=== PATIENT | female | born 1940 | race Caucasian/White ===

== ENCOUNTER 2016-09-08 13:25 | Inpatient (IN) | payer MEDICARE, OTHER ==
[~2016-09-08] VITALS: Ht 157.5 cm; Wt 75.3 kg
[2016-09-08] MEDS ORDERED: KETOROLAC TROMETHAMINE 30 MG/ML INJ. IV ONE (14:45)
--- NOTE | 2016-09-08 15:04 | EKG ---
[facility] [address] [place] [address] Test Date: 2016-09-08 Test Time: 14:56:33 Pat Name: CYDNEY BALLARD Department: Room: Gender: F Civil Technician: : 1940 Requested By: Carlos GOODMAN Order Number: [id number] Reading MD: Jakub Farr Measurements Intervals [place] Rate: 71 P: 30 CA: 174 QRS: -13 QRSD: 78 T: 33 QT: 392 QTc: 431 Interpretive Statements SINUS RHYTHM Electronically Signed On 09-08-2016 18:01:28 CDT by Jakub Farr
--- NOTE | 2016-09-08 15:15 | RAD ---
Chest, 2 views, 09/08/2016: History: Right-sided chest pain, shortness of breath The heart is at the upper limits of normal in size. There is calcific plaquing of the aorta. The pulmonary vascularity is normal. No pulmonary infiltrate is seen. There is no evidence of pleural fluid. Mild spurring is present in the spine. A left humeral head prosthesis is in place. IMPRESSION: 1. Borderline cardiomegaly. 2. No acute abnormality is detected.
--- NOTE | 2016-09-08 15:16 | RAD ---
Right upper quadrant abdominal ultrasound History: Right flank and upper quadrant pain. Comparison: None. Technique: Transabdominal ultrasound images are obtained. Findings: Visualized pancreas is unremarkable. Liver is is increased in echogenicity. The liver demonstrates a large complex cystic lesion measuring 7.0 x 4.9 x 6.6 cm. Gallbladder is partially contracted. Patient ate 30 minutes prior to examination. No cholelithiasis or cholecystitis is seen. Common bile duct measures normally at 4 mm in diameter. The right kidney measures 9.3 cm in length and is without evidence of obstruction or stone. Visualized portions of the IVC have normal caliber. Impression: 1. Liver demonstrates a large complex cystic lesion with somewhat thickened internal septations. This finding is nonspecific, but possibilities include complex cyst, biliary cystadenoma, abscess, or hydatid disease. Recommend clinical correlation. 2. Echogenic liver, compatible with fatty liver disease.
[2016-09-08 15:23] LABS: BASO # 0.1 x10^3/uL (0.0-0.2); BASO % 1 % (0-3); EOS % 2 % (0-3); HEMATOCRIT 41.8 % (36.0-47.0); HEMOGLOBIN 14.5 g/dL (12.0-15.5); LYMPH % 20 % (24-48); MEAN CORPUSCULAR HEMOGLOBIN 30 pg (25-35); MEAN CORPUSCULAR HGB CONC 35 g/dL (31-37); MEAN CORPUSCULAR VOLUME 88 fL (79-100); MONO % 7 % (0-9); NEUT % 70 % (31-73); PLATELET COUNT 206 x10^3/uL (140-400); RED BLOOD COUNT 4.78 x10^6/uL (3.50-5.40); WHITE BLOOD COUNT 14.9 x10^3/uL (4.0-11.0)
[2016-09-08 15:54] LABS: CALCIUM 8.9 mg/dL (8.5-10.1); CREATININE 0.9 mg/dL (0.6-1.0); GFR 60.6; POTASSIUM 3.3 mmol/L (3.5-5.1)
[2016-09-08 16:01] LABS: ALBUMIN 3.9 g/dL (3.4-5.0); DIRECT BILIRUBIN 0.1 mg/dL (0.0-0.2); TOTAL BILIRUBIN 0.5 mg/dL (0.2-1.0); TOTAL PROTEIN 7.1 g/dL (6.4-8.2)
--- NOTE | 2016-09-08 16:38 | PHYS DOC ---
Past Medical History Past Medical History: GERD, High Cholesterol, Hypertension Past Surgical History: Hysterectomy Additional Past Surgical Histo: left shoulder Alcohol Use: None Drug Use: None Adult General Chief Complaint Chief Complaint: RIB PAIN HPI HPI Patient is a 76 year old female who presents with right lower chest wall and RUQ abdominal pain that started approx 2 hours prior to arrival. Pain is mild to moderate, constant, nonradiating. She denies fever or chills, nausea or vomiting, dysuria, hematuria, diarrhea, constipation, bloody or dark stools, dyspnea, palpitations, diaphoresis, orthopnea, exertional symptoms. She denies prior symptoms like this. She denies any history of liver cyst. She lives in [place], but is here on work travel. Review of Systems Review of Systems Constitutional: Denies fever or chills [] Eyes: Denies change in visual acuity, redness, or eye pain [] HENT: Denies nasal congestion or sore throat [] Respiratory: Denies cough or shortness of breath [] Cardiovascular: No additional information not addressed in HPI [] GI: Denies nausea, vomiting, bloody stools or diarrhea [] : Denies dysuria or hematuria [] Musculoskeletal: Denies back pain or joint pain [] Integument: Denies rash or skin lesions [] Neurologic: Denies headache, focal weakness or sensory changes [] Endocrine: Denies polyuria or polydipsia [] Current Medications Current Medications Current Medications Medications (Trade) Dose Ordered Sig/Tonia Start Time Stop Time Status Last Admin Dose Admin Info (Do NOT chart on this entry -- for MONITORING) 1 each PRN DAILY PRN 09/08/16 17:00 09/10/16 16:59 Iohexol (Omnipaque 300 Mg/ml) 75 ml 1X ONCE 09/08/16 17:00 09/08/16 17:01 DC 09/08/16 17:00 75 ML Ketorolac Tromethamine (Toradol) 10 mg 1X ONCE 09/08/16 14:45 09/08/16 14:46 DC 09/08/16 15:13 10 MG Piperacillin Sod/ Tazobactam Sod 1 each 1 each PRN DAILY PRN 09/08/16 16:45 Piperacillin Sod/ Tazobactam Sod/ Sodium Chloride (Zosyn/Iv Sodium Chloride 0.9% 50ml) 50 ml @ 100 mls/hr 1X ONCE 09/08/16 16:45 09/08/16 17:14 DC 09/08/16 17:01 100 MLS/HR Allergies Allergies Physical Exam Physical Exam Constitutional: Well developed, well nourished, no acute distress, non-toxic appearance. [] HENT: Normocephalic, atraumatic, bilateral external ears normal, oropharynx moist, nose normal. [] Eyes: PERRLA, EOMI. [] Neck: Normal range of motion, supple. [] Cardiovascular:Heart rate regular rhythm [] Lungs & Thorax: Bilateral breath sounds clear to auscultation. Has some tenderness on along right lower lateral chest wall with no visual or palpable abnormality. Specifically has no rash. [] Abdomen: Bowel sounds normal, soft, some epigastric and right upper quadrant tenderness, no guarding or rebound. [] Skin: Warm, dry, no erythema, no rash. [] Back: No tenderness, no CVA tenderness. [] Extremities: No tenderness, ROM intact, no edema. [] Neurologic: Alert and oriented X 3, normal motor function, normal sensory function, no focal deficits noted. [] Psychologic: Affect normal, judgement normal, mood normal. [] Current Patient Data Vital Signs Vital Signs Date Time Temp Pulse Resp B/P Pulse Ox O2 Delivery O2 Flow Rate FiO2 09/08/16 16:00 72 18 178/76 93 Room Air 09/08/16 13:34 97.9 97.9 Lab Values Laboratory Tests Test 09/08/16 15:10 White Blood Count 14.9x10^3/uL (4.0-11.0) H Red Blood Count 4.78x10^6/uL (3.50-5.40) Hemoglobin 14.5g/dL (12.0-15.5) Hematocrit 41.8% (36.0-47.0) Mean Corpuscular Volume 88fL (79-100) Mean Corpuscular Hemoglobin 30pg (25-35) Mean Corpuscular Hemoglobin Concent 35g/dL (31-37) Red Cell Distribution Width 13.0% (11.5-14.5) Platelet Count 206x10^3/uL (140-400) Neutrophils (%) (Auto) 70% (31-73) Lymphocytes (%) (Auto) 20% (24-48) L Monocytes (%) (Auto) 7% (0-9) Eosinophils (%) (Auto) 2% (0-3) Basophils (%) (Auto) 1% (0-3) Neutrophils # (Auto) 10.4x10^3uL (1.8-7.7) H Lymphocytes # (Auto) 3.0x10^3/uL (1.0-4.8) Monocytes # (Auto) 1.0x10^3/uL (0.0-1.1) Eosinophils # (Auto) 0.3x10^3/uL (0.0-0.7) Basophils # (Auto) 0.1x10^3/uL (0.0-0.2) Sodium Level 137mmol/L (136-145) Potassium Level 3.3mmol/L (3.5-5.1) L Chloride Level 97mmol/L (98-107) L Carbon Dioxide Level 33mmol/L (21-32) H Anion Gap 7 (6-14) Blood Urea Nitrogen 17mg/dL (7-20) Creatinine 0.9mg/dL (0.6-1.0) Estimated GFR (Cockcroft-Gault) 60.6 Glucose Level 109mg/dL (70-99) H Calcium Level 8.9mg/dL (8.5-10.1) Total Bilirubin 0.5mg/dL (0.2-1.0) Direct Bilirubin 0.1mg/dL (0.0-0.2) Aspartate Amino Transferase (AST) 18U/L (15-37) Alanine Aminotransferase (ALT) 25U/L (14-59) Alkaline Phosphatase 96U/L (46-116) Troponin I Quantitative < 0.017ng/mL (0.000-0.055) Total Protein 7.1g/dL (6.4-8.2) Albumin 3.9g/dL (3.4-5.0) Lipase 162U/L (73-393) Laboratory Tests 09/08/16 15:10 Laboratory Tests 09/08/16 15:10 EKG EKG EKG as interpreted by me as normal sinus rhythm, rate 71, no ST-T changes, normal intervals, no ectopy Radiology/Procedures Radiology/Procedures Ultrasound abdomen Impression: 1. Liver demonstrates a large complex cystic lesion with somewhat thickened internal septations. This finding is nonspecific, but possibilities include complex cyst, biliary cystadenoma, abscess, or hydatid disease. Recommend clinical correlation. 2. Echogenic liver, compatible with fatty liver disease. DICTATED and SIGNED BY: LOTTIE GEORGE MD DATE: 09/08/16 1508 Course & Med Decision Making Course & Med Decision Making Pertinent Labs and Imaging studies reviewed. (See chart for details) Laboratory evaluation is largely unremarkable other than mild leukocytosis. Imaging as above. Discussed case with Dr. Edouard, gastroenterology, who recommends IV antibiotics, CT abdomen and pelvis, and infectious disease consult. He also states she will likely need biopsy depending upon CT results. She will be admitted for further workup for concern of liver abscess versus malignancy. Discussed case with Dr. Salinas, who will admit. ID consultation placed. Fransico Disclaimer Dragon Disclaimer This electronic medical record was generated, in whole or in part, using a voice recognition dictation system. Departure Departure Impression: Primary Impression: Abdominal pain Additional Impression: Liver cyst Disposition: ADMITTED INPATIENT Condition: STABLE Referrals: UNKNOWN PCP NAME (PCP) Problem Qualifiers Primary Impression: Abdominal pain Abdominal location: right upper quadrant Qualified Code: R10.11 - Right upper quadrant pain Carlos GOODMAN MD Sep 08, 2016 16:38
[2016-09-08] MEDS ORDERED: PIPERACILLIN/TAZOBACTAM 3.375 GM in IV NORMAL SALINE 50ML 50 ML IV ONE (16:45)
[2016-09-08] MEDS ORDERED: PIP/TAZO PER PHARMACY MC PRN (16:45)
[2016-09-08] MEDS ORDERED: CONTRAST GIVEN MC PRN (17:00)
[2016-09-08] MEDS ORDERED: IOHEXOL 300 MG/ML 75 ML VIAL IV ONE (17:00)
[2016-09-08] MEDS ORDERED: fentaNYL PF VIAL 100 MCG/2 ML VIAL IV PRN (17:15)
[2016-09-08] MEDS ORDERED: ONDANSETRON PF 4 MG/2 ML VIAL. IV PRN (17:15)
[2016-09-08] MEDS ORDERED: ACETAMINOPHEN 325 MG TABLET. PO PRN (17:15)
--- NOTE | 2016-09-08 19:03 | ACF ---
Admission Forms Criteria ABDOMINAL PAIN Clinical Indications for Admission to Inpatient Care (Place 'X' for any and all applicable criteria): Admission is indicated for ANY ONE of the following(1)(2)(3)(4)(5): [x]I. Inpatient admission required rather than observation care (Also use Abdominal Pain: Observation Care, as appropriate) because of ANY ONE of the following: [ ]a) Severe pain requiring acute inpatient management [x]b) Identification of etiology/finding that requires inpatient care (eg, aortic dissection, free air) [ ]c) Absent bowel sounds with complete ileus(6) [ ]d) Suspected toxic megacolon [ ]e) Severe electrolyte abnormalities requiring inpatient care [ ]f) High fever or infection requiring inpatient admission as indicated by ANY ONE of following(7)(8): [ ] i) Appropriate outpatient or observational care antimicrobial treatment unavailable, not effective, or not feasible [ ] ii) Documented bacteremia [ ] iii) Temperature > 104.9 degrees F (oral) [ ] iv) T >103.1 F (oral) or < 96.8 F(rectal) that does not respond to all emergency treatment measures [ ]g) Signs of intestinal obstruction [B] [ ]h) Hemodynamic instability [ ]i) IV fluid to replace significant ongoing losses (greater than 3 L/m2 per day) (12)(13) [ ]j) Percutaneous or open drainage (eg, abscess, biliary tract ) procedures [ ]k) Parenteral nutrition regimen that must be implemented on inpatient basis [ ]l) Other condition,treatment or monitoring requiring inpatient admission. [ ]II. Peritoneal signs present [ ]III. Surgery needed that cannot be performed on an ambulatory basis. [ ]IV. Evaluation requires patient to not eat or drink for extended period ( eg, more than 24 hours). [ ]V. Contraindications and/or Inappropriate clinical situations for Observational Care in patients with abdominal pain, when ANY ONE of the following is required: [ ]a) Thorough evaluation is required to prevent catastrophic events due to delays in diagnosing (e.g.Mesenteric ischemia) 1,3 [ ]b) Patient with severe pathology or with chronic symptoms unlikely to improve in the ED stay (3) [ ]. General contraindications and/or Inappropriate clinical situations for Observational Care in patients with abdominal pain, when ANY ONE of the following is required: [ ]a) Prediction of prolongation of LOS based on ANY ONE of the following may be considered as a contraindication for observational care 2, 3, 4, 5, 6, 7, 8, 9, 10, 11 [ ]i) Age > 65 yrs. [ ]ii) Patient arriving by ambulance [ ]iii) Patient with high acuity [ ]iv) Patient requiring vital sign monitoring [ ]v) Patient on IV medication [ ]b) Systolic blood pressures 180mmHg 3,12 [ ]c) Patient with altered mental status including delirium and other alteration of consciousness, (3) [ ]d) Patient whose discharge disposition will be to a chcf home or rehabilitation home should not be managed in Emergency Department Observation Unit. CMS rule requires 3 days hospital stay before such placement.3,13 [ ]e) Patient with failure to thrive due to broad array of etiologies 3,16,17 [ ]f) Inability to ambulate 3,14 Extended stay beyond goal length of stay may be needed for(2)(3): [ ]a) Persistent abdominal pain with suspected intra-abdominal process [ ]b) Diagnosed condition requiring continued stay (e.g., pancreatitis, complicated diverticulitis) [ ]c) Surgery (e.g., colectomy) The original [facility] content created by [employer] has been revised. The portions of the content which have been revised are identified through the use of italic text or in bold, and [facility] has neither reviewed nor approved the modified material.All other unmodified content is copyright [employer]. Please see references footnoted in the original [facility] edition 2016 Admission Criteria Met?: Yes GO GOLDEN Sep 08, 2016 19:03
[2016-09-08] MEDS ORDERED: HYDR25TA9 PO (20:28)
[2016-09-08] MEDS ORDERED: OMEP20CA9 PO (20:28)
[2016-09-08] MEDS ORDERED: SIMV20TA3 PO (20:28)
[2016-09-08] MEDS ORDERED: levothyroxine (20:28)
[2016-09-08] MEDS ORDERED: ATEN50TA PO (20:28)
--- NOTE | 2016-09-08 20:44 | RAD ---
Examination: CT of the abdomen pelvis were performed without and with IV contrast. HISTORY History of complex liver cyst. COMPARISON Ultrasound from same day exam. TECHNIQUE Axial CT images of the abdomen were performed without contrast. Axial CT images of the abdomen pelvis were performed with contrast using multiphasic CT protocol. Exposure: One or more of the following dose reduction technique were utilized for this examination: 1. Automated exposure control. 2.Adjustment of MA and /or KV according to patient size. 3. Use of iterative reconstruction technique. Findings: Minimal bibasilar lung atelectasis identified. No evidence of free air identified in the abdomen. The visualized spleen, adrenals grossly appears unremarkable. The gallbladder is mildly distended. Small hiatal hernia is identified. The stomach is mildly distended. The visualized pancreas grossly appears unremarkable. The small bowel is nondilated. Feces and gas noted in the colon. The appendix grossly appears unremarkable. The bilateral kidneys enhance symmetrically. There is a cystic structure identified in the left kidney measuring 4.2 centimeters likely a cyst. In the inferior right lobe of the liver, there is a 6.8 x 5.4 centimeters cystic structure identified containing subtle hyperdensity within on the precontrast and postcontrast images. There is minimal stranding identified and just inferior to the right lobe of the liver and laterally adjacent to the cystic structure. There is no obvious enhancement identified on the postcontrast images within the cystic structure. Moderate degenerative changes identified in the visualized thoracolumbar spine. There is a lytic focus measuring 1.4 centimeters identified in the T12 vertebral body could be a cyst secondary to degeneration however lytic lesion is not completely excluded. Impression: 1.6.8 centimeter cystic structure identified in the right lobe of the liver inferiorly containing some hyperdensity within without significant enhancement. There is minimal stranding identified just adjacent to the right lobe of the liver adjacent to the cyst. Differential includes complex appearing hepatic cyst, biliary cystadenoma with some minimal leakage or hydrated cyst, given the appearance. A hepatic abscess is less likely given no significant edema around the cystic structure however is not completely excluded. 2. There is a lytic focus measuring 1.4 centimeters identified in the T12 vertebral body could be a cyst secondary to degeneration however lytic lesion is not completely excluded. A followup nonemergent bone scan can be considered. Electronically signed by: Mark Man (Sep 08, 2016 20:42:28)
[2016-09-08] MEDS ORDERED: OMEG300C PO (20:57)
[2016-09-08] MEDS ORDERED: ASPI-482 PO (20:57)
[2016-09-08 21:21] VITALS: BP 147/85
[2016-09-08] MEDS ORDERED: LEVO50TA5 PO (21:31)
[2016-09-08] MEDS ORDERED: OMEG1CAP34 PO (21:41)
[2016-09-08] MEDS: hydroCHLOROthiazide 25 MG TABLET PO SCH (22:42)
[2016-09-08] MEDS: ATENOLOL 50 MG TABLET. PO SCH (22:42)
[2016-09-08] MEDS: SIMVASTATIN 20 MG TABLET PO SCH (22:42)
[2016-09-08 23:00] VITALS: BP 177/80
[2016-09-09] VITALS (7 sets, daily range): BP systolic 116–161; BP diastolic 58–66
[2016-09-09] MEDS: PIPERACILLIN/TAZOBACTAM 3.375 GM in IV NORMAL SALINE 50ML 50 ML IV SCH ×4 (00:25→17:23)
[2016-09-09] MEDS: LEVOTHYROXINE 50 MCG TABLET PO SCH (06:23)
[2016-09-09] MEDS: PANTOPRAZOLE 40 MG TABLET.DR. PO SCH (06:23)
[2016-09-09] MEDS: OMEGA-3 FATTY ACIDS/FISH OIL 1,000 MG CAPSULE. PO SCH (08:32)
[2016-09-09] MEDS: hydroCHLOROthiazide 25 MG TABLET PO SCH (08:33)
[2016-09-09] MEDS: ASPIRIN ENTERIC COATED 81 MG TABLET.DR. PO SCH (08:33)
[2016-09-09] MEDS: ATENOLOL 50 MG TABLET. PO SCH (08:33)
[2016-09-09] MEDS: HYDROcodone/APAP 5/325MG 1 TAB TABLET PO PRN ×2 (10:29→17:23)
--- NOTE | 2016-09-09 10:33 | PDOC1 ---
History and Physical Social History Smoke: No ALCOHOL: rare Drugs: None Current Problem List Problem List Problems Medical Problems: (1) Abdominal pain Status: Acute (2) Liver cyst Status: Acute Current Medications Current Medications Current Medications Medications (Trade) Dose Ordered Sig/Tonia Start Time Stop Time Status Last Admin Dose Admin Acetaminophen 650 mg 650 mg PRN Q4HRS PRN 09/08/16 17:15 09/09/16 17:14 Acetaminophen/ Hydrocodone Bitart (Lortab 5/325) 1 tab PRN Q4HRS PRN 09/08/16 21:45 09/09/16 10:29 1 TAB Aspirin (Ecotrin) 81 mg DAILY 09/09/16 09:00 09/09/16 08:33 81 MG Atenolol (Tenormin) 50 mg DAILY 09/08/16 22:00 09/09/16 08:33 50 MG Fentanyl Citrate (Fentanyl 2ml Vial) 50 mcg PRN Q2HR PRN 09/08/16 17:15 09/09/16 10:31 DC 09/08/16 19:56 50 MCG Fish Oil (Fish Oil) 1,000 mg DAILY 09/09/16 09:00 09/09/16 08:32 1,000 MG Hydrochlorothiazide (Hydrodiuril) 25 mg DAILY 09/08/16 22:00 09/09/16 08:33 25 MG Info (Do NOT chart on this entry -- for MONITORING) 1 each PRN DAILY PRN 09/08/16 17:00 09/10/16 16:59 Iohexol (Omnipaque 300 Mg/ml) 75 ml 1X ONCE 09/08/16 17:00 09/08/16 17:01 DC 09/08/16 17:00 75 ML Ketorolac Tromethamine (Toradol) 10 mg 1X ONCE 09/08/16 14:45 09/08/16 14:46 DC 09/08/16 15:13 10 MG Levothyroxine Sodium (Synthroid) 50 mcg DAILY07 09/09/16 07:00 09/09/16 06:23 50 MCG Ondansetron HCl (Zofran) 4 mg PRN Q8HRS PRN 09/08/16 17:15 09/09/16 17:14 09/08/16 20:11 4 MG Pantoprazole Sodium (Protonix) 40 mg DAILYAC 09/09/16 07:30 09/09/16 06:23 40 MG Piperacillin Sod/ Tazobactam Sod (Zosyn Per Pharmacy) 1 each PRN DAILY PRN 09/08/16 16:45 Piperacillin Sod/ Tazobactam Sod/ Sodium Chloride (Zosyn/Iv Sodium Chloride 0.9% 50ml) 50 ml @ 100 mls/hr Q6HRS 09/09/16 00:00 09/09/16 06:23 100 MLS/HR Simvastatin (Zocor) 20 mg QHS 09/08/16 22:00 09/08/16 22:42 20 MG Allergies Allergies Allergies Coded Allergies Type Severity Reaction Last Updated Verified Curmpke-Yuk-Kdj Reductase Inhibitor Allergy Intermediate ALLERGY TO UNKNOWN CHOLESTEROL MED 09/08/16 No fenofibrate Allergy Intermediate ALLERGY TO UNKNOWN CHOLESTEROL MEDICATION No gemfibrozil Allergy Intermediate ALLERGY TO UNKNOWN CHOLESTEROL MEDICATION No niacin Allergy Intermediate ALLERGY TO UNKNOWN CHOLESTEROL MEDICATION 09/08/16 No ROS Review of System CONSTITUTIONAL: No fever or chills EYES: No recent changes SKIN: No rash or itching CARDIOVASCULAR: No chest pain, syncope, palpitations, or edema RESPIRATORY: No SOB or cough GASTROINTESTINAL: abdominal pain NEUROLOGICAL: No headaches or weakness ENDOCRINE: No cold or heat intolerance GENITOURINARY: No urgency or frequency of urination MUSCULOSKELETAL: No back pain or joint pain LYMPHATICS: No enlarged lymph nodes PSYCHIATRIC: No anxiety or depression Physical Exam Physical Exam GEN.: No apparent distress. Alert and oriented. HEENT: Head is normocephalic, atraumatic NECK: Supple. NO JVD LUNGS: Clear to auscultation. Normal airflow HEART: RRR, S1, S2 present. Peripheral pulses intact ABDOMEN: Soft, tender LUQ. Positive bowel sounds. EXTREMITIES: Without any cyanosis. NEUROLOGIC: Normal speech, normal tone PSYCHIATRIC: Normal affect, normal mood. SKIN: No ulcerations Vitals Vitals Vital Signs Date Time Temp Pulse Resp B/P Pulse Ox O2 Delivery O2 Flow Rate FiO2 09/09/16 10:29 93 Room Air 09/09/16 08:33 64 116/65 09/09/16 07:45 97.7 12 97.7 Labs Labs Laboratory Tests Test 09/08/16 15:10 White Blood Count 14.9x10^3/uL (4.0-11.0) Red Blood Count 4.78x10^6/uL (3.50-5.40) Hemoglobin 14.5g/dL (12.0-15.5) Hematocrit 41.8% (36.0-47.0) Mean Corpuscular Volume 88fL (79-100) Mean Corpuscular Hemoglobin 30pg (25-35) Mean Corpuscular Hemoglobin Concent 35g/dL (31-37) Red Cell Distribution Width 13.0% (11.5-14.5) Platelet Count 206x10^3/uL (140-400) Neutrophils (%) (Auto) 70% (31-73) Lymphocytes (%) (Auto) 20% (24-48) Monocytes (%) (Auto) 7% (0-9) Eosinophils (%) (Auto) 2% (0-3) Basophils (%) (Auto) 1% (0-3) Neutrophils # (Auto) 10.4x10^3uL (1.8-7.7) Lymphocytes # (Auto) 3.0x10^3/uL (1.0-4.8) Monocytes # (Auto) 1.0x10^3/uL (0.0-1.1) Eosinophils # (Auto) 0.3x10^3/uL (0.0-0.7) Basophils # (Auto) 0.1x10^3/uL (0.0-0.2) Sodium Level 137mmol/L (136-145) Potassium Level 3.3mmol/L (3.5-5.1) Chloride Level 97mmol/L (98-107) Carbon Dioxide Level 33mmol/L (21-32) Anion Gap 7 (6-14) Blood Urea Nitrogen 17mg/dL (7-20) Creatinine 0.9mg/dL (0.6-1.0) Estimated GFR (Cockcroft-Gault) 60.6 Glucose Level 109mg/dL (70-99) Calcium Level 8.9mg/dL (8.5-10.1) Total Bilirubin 0.5mg/dL (0.2-1.0) Direct Bilirubin 0.1mg/dL (0.0-0.2) Aspartate Amino Transf (AST/SGOT) 18U/L (15-37) Alanine Aminotransferase (ALT/SGPT) 25U/L (14-59) Alkaline Phosphatase 96U/L (46-116) Troponin I Quantitative < 0.017ng/mL (0.000-0.055) Total Protein 7.1g/dL (6.4-8.2) Albumin 3.9g/dL (3.4-5.0) Lipase 162U/L (73-393) Laboratory Tests Test 09/08/16 15:10 White Blood Count 14.9x10^3/uL (4.0-11.0) Red Blood Count 4.78x10^6/uL (3.50-5.40) Hemoglobin 14.5g/dL (12.0-15.5) Hematocrit 41.8% (36.0-47.0) Mean Corpuscular Volume 88fL (79-100) Mean Corpuscular Hemoglobin 30pg (25-35) Mean Corpuscular Hemoglobin Concent 35g/dL (31-37) Red Cell Distribution Width 13.0% (11.5-14.5) Platelet Count 206x10^3/uL (140-400) Neutrophils (%) (Auto) 70% (31-73) Lymphocytes (%) (Auto) 20% (24-48) Monocytes (%) (Auto) 7% (0-9) Eosinophils (%) (Auto) 2% (0-3) Basophils (%) (Auto) 1% (0-3) Neutrophils # (Auto) 10.4x10^3uL (1.8-7.7) Lymphocytes # (Auto) 3.0x10^3/uL (1.0-4.8) Monocytes # (Auto) 1.0x10^3/uL (0.0-1.1) Eosinophils # (Auto) 0.3x10^3/uL (0.0-0.7) Basophils # (Auto) 0.1x10^3/uL (0.0-0.2) Sodium Level 137mmol/L (136-145) Potassium Level 3.3mmol/L (3.5-5.1) Chloride Level 97mmol/L (98-107) Carbon Dioxide Level 33mmol/L (21-32) Anion Gap 7 (6-14) Blood Urea Nitrogen 17mg/dL (7-20) Creatinine 0.9mg/dL (0.6-1.0) Estimated GFR (Cockcroft-Gault) 60.6 Glucose Level 109mg/dL (70-99) Calcium Level 8.9mg/dL (8.5-10.1) Total Bilirubin 0.5mg/dL (0.2-1.0) Direct Bilirubin 0.1mg/dL (0.0-0.2) Aspartate Amino Transf (AST/SGOT) 18U/L (15-37) Alanine Aminotransferase (ALT/SGPT) 25U/L (14-59) Alkaline Phosphatase 96U/L (46-116) Troponin I Quantitative < 0.017ng/mL (0.000-0.055) Total Protein 7.1g/dL (6.4-8.2) Albumin 3.9g/dL (3.4-5.0) Lipase 162U/L (73-393) VTE Prophylaxis Ordered VTE Prophylaxis Devices: Yes VTE Pharmacological Prophylaxi: Contraindicated TUAN YOUNG MD Sep 09, 2016 10:33
--- NOTE | 2016-09-09 12:05 | PDOC2 ---
GI CONSULT Date Date/Time DATE: 09/09/16 TIME: 11:52 Providers Attending Physician Dani Salinas MD Referring Physician Consulting Physician Dr. Sims History of Present Illness HPI 76 yo WF- traveling her from [place]- denies prior RUQ pain, liver disease etc but honestly does not think she has ever had an xray of liver before- some constipation , typical for her travels, but improved after laxatives - no pain with constipation- but new onset RUQ sharp pain- lateral, just below ribs- NO trauma. Last colonoscopy over 5 years ago but no history of diverticulitis, colon problems, biliary disease etc. No foreign travel. [place] and CT show 6-7 cm cyst in right lobe of liver- and is near the location of her pain- but only shows alittle inflammatory change and no obvious mass. No portal vein air, thrombosis etc. Does have history of recurrent UTI- last abx in may- no evaluation- buat happens at least yearly and responds to abx or cranberry pills (recent). No other chronic history History Past Medical History HTN Lipids hypothyroid Recurrent UTI Social/Personal History non smoker, rare alcohol- no drug abuse, no IV drug history Review of Systems Gastrointestinal: Yes: RUQ pain, constipation Allergies Allergies Allergies Coded Allergies Type Severity Reaction Last Updated Verified Hbndqxy-Htz-Iiz Reductase Inhibitor Allergy Intermediate ALLERGY TO UNKNOWN CHOLESTEROL MED 09/08/16 No fenofibrate Allergy Intermediate ALLERGY TO UNKNOWN CHOLESTEROL MEDICATION No gemfibrozil Allergy Intermediate ALLERGY TO UNKNOWN CHOLESTEROL MEDICATION No niacin Allergy Intermediate ALLERGY TO UNKNOWN CHOLESTEROL MEDICATION 09/08/16 No Medications Medications Current Medications Ketorolac Tromethamine (Toradol) 10 mg 1X ONCE IV Last administered on 15:13; Start 09/08/16 at 14:45; Stop 09/08/16 at 14:46; Status DC Piperacillin Sod/ Tazobactam Sod 1 each 1 each PRN DAILY PRN MC SEE COMMENTS; Start 09/08/16 at 16:45 Piperacillin Sod/ Tazobactam Sod/ Sodium Chloride (Zosyn/Iv Sodium Chloride 0.9 % 50ml) 50 ml @ 100 mls/hr 1X ONCE IV Last administered on 09/08/16 17:01; Start 09/08/16 at 16:45; Stop 09/08/16 at 17:14; Status DC Iohexol (Omnipaque 300 Mg/ml) 75 ml 1X ONCE IV Last administered on 09/08/16 17:00; Start 09/08/16 at 17:00; Stop 09/08/16 at 17:01; Status DC Info (Do NOT chart on this entry -- for MONITORING) 1 each PRN DAILY PRN MC SEE COMMENTS; Start 09/08/16 at 17:00; Stop 09/10/16 at 16:59 Ondansetron HCl (Zofran) 4 mg PRN Q8HRS PRN IV NAUSEA/VOMITING Last administered on 09/08/16 20:11; Start 09/08/16 at 17:15; Stop 09/09/16 at 17:14 Fentanyl Citrate (Fentanyl 2ml Vial) 50 mcg PRN Q2HR PRN IV PAIN Last administered on 09/08/16 19:56; Start 09/08/16 at 17:15; Stop 09/09/16 at 10:31 ; Status DC Acetaminophen 650 mg 650 mg PRN Q4HRS PRN PO FEVER; Start 09/08/16 at 17:15; Stop 09/09/16 at 17:14 Piperacillin Sod/ Tazobactam Sod/ Sodium Chloride (Zosyn/Iv Sodium Chloride 0.9 % 50ml) 50 ml @ 100 mls/hr Q6HRS IV Last administered on 09/09/16 11:46; Start 09/09/16 at 00:00 Aspirin (Ecotrin) 81 mg DAILY PO Last administered on 09/09/16 08:33; Start at 09:00 Atenolol (Tenormin) 50 mg DAILY PO Last administered on 09/09/16 08:33; Start 09/08/16 at 22:00 Hydrochlorothiazide (Hydrodiuril) 25 mg DAILY PO Last administered on 08:33; Start 09/08/16 at 22:00 Levothyroxine Sodium (Synthroid) 50 mcg DAILY07 PO Last administered on 06:23; Start 09/09/16 at 07:00 Simvastatin (Zocor) 20 mg QHS PO Last administered on 09/08/16 22:42; Start at 22:00 Pantoprazole Sodium (Protonix) 40 mg DAILYAC PO Last administered on 09/09/16 06:23; Start 09/09/16 at 07:30 Fish Oil (Fish Oil) 1,000 mg DAILY PO Last administered on 09/09/16 08:32; Start 09/09/16 at 09:00 Acetaminophen/ Hydrocodone Bitart (Lortab 5/325) 1 tab PRN Q4HRS PRN PO MODERATE PAIN Last administered on 09/09/16 10:29; Start 09/08/16 at 21:45 Active Scripts Active Reported Fish Oil Concentrate Softgel ([place]-3 Fatty Acids/Fish Oil) 1 Each Capsule 1 Each PO Levothyroxine Sodium 50 Mcg Tablet 1 Tab PO DAILY Aspir 81 (Aspirin) 81 Mg Tablet.dr 1 Tab PO DAILY Omeprazole 20 Mg Capsule.dr 1 Cap PO DAILY Hydrochlorothiazide Tablet (Hydrochlorothiazide) 25 Mg Tablet 1 Tab PO DAILY Atenolol 50 Mg Tablet 1 Tab PO DAILY Simvastatin 20 Mg Tablet 1 Tab PO QHS Physical Exam Physical Exam VSS afeb Neck supple chest clear cor- RRR abd- tender lateral right side just under ribs- no mass - rest of abd NONTENDER- normal bowel sounds extrem - NO CCE Neuro- alert non focal Labs Labs Laboratory Tests Test 09/08/16 15:10 White Blood Count 14.9x10^3/uL (4.0-11.0) Red Blood Count 4.78x10^6/uL (3.50-5.40) Hemoglobin 14.5g/dL (12.0-15.5) Hematocrit 41.8% (36.0-47.0) Mean Corpuscular Volume 88fL (79-100) Mean Corpuscular Hemoglobin 30pg (25-35) Mean Corpuscular Hemoglobin Concent 35g/dL (31-37) Red Cell Distribution Width 13.0% (11.5-14.5) Platelet Count 206x10^3/uL (140-400) Neutrophils (%) (Auto) 70% (31-73) Lymphocytes (%) (Auto) 20% (24-48) Monocytes (%) (Auto) 7% (0-9) Eosinophils (%) (Auto) 2% (0-3) Basophils (%) (Auto) 1% (0-3) Neutrophils # (Auto) 10.4x10^3uL (1.8-7.7) Lymphocytes # (Auto) 3.0x10^3/uL (1.0-4.8) Monocytes # (Auto) 1.0x10^3/uL (0.0-1.1) Eosinophils # (Auto) 0.3x10^3/uL (0.0-0.7) Basophils # (Auto) 0.1x10^3/uL (0.0-0.2) Sodium Level 137mmol/L (136-145) Potassium Level 3.3mmol/L (3.5-5.1) Chloride Level 97mmol/L (98-107) Carbon Dioxide Level 33mmol/L (21-32) Anion Gap 7 (6-14) Blood Urea Nitrogen 17mg/dL (7-20) Creatinine 0.9mg/dL (0.6-1.0) Estimated GFR (Cockcroft-Gault) 60.6 Glucose Level 109mg/dL (70-99) Calcium Level 8.9mg/dL (8.5-10.1) Total Bilirubin 0.5mg/dL (0.2-1.0) Direct Bilirubin 0.1mg/dL (0.0-0.2) Aspartate Amino Transf (AST/SGOT) 18U/L (15-37) Alanine Aminotransferase (ALT/SGPT) 25U/L (14-59) Alkaline Phosphatase 96U/L (46-116) Troponin I Quantitative < 0.017ng/mL (0.000-0.055) Total Protein 7.1g/dL (6.4-8.2) Albumin 3.9g/dL (3.4-5.0) Lipase 162U/L (73-393) Imaging Imaging CT and US Assessment Assessment RUQ pain- new onset 2 days ago- tender to palp in right lateral near area of "cyst " on CT- 7 cm cyst is large but usually not painful unless expanding and involving capsule- abscess is a possibility based on WBC but CT features are atypical. Tumor unlikely to look like this and certainly unlikely to cause acute pain- was recently constipation but did have BM before onset of pain and nothing on CT suggests bowel source for pain Cyst in Rt lobe of liver- 7 cm- ? abscess- but atypical Problems: Plan Plan Agree with empiric abx and pain control await ID consult- I would consider Interventional consult and needle drainage IF ok with ID Thank you for allowing us to participate in the care of your patient. We will continue to follow the patient with you and provide an appropriate recommendation as it becomes available. FERNANDO SIMS MD Sep 09, 2016 12:05
--- NOTE | 2016-09-09 13:22 | PDOC ---
Infectious Disease Note Vital Sign Vital Signs Vital Signs Date Time Temp Pulse Resp B/P Pulse Ox O2 Delivery O2 Flow Rate FiO2 09/09/16 11:29 94 Room Air 09/09/16 10:35 98.1 67 19 161/66 98.1 Physical Exam PHYSICAL EXAM IV: ok Labs Lab Laboratory Tests Test 09/08/16 15:10 White Blood Count 14.9x10^3/uL (4.0-11.0) Red Blood Count 4.78x10^6/uL (3.50-5.40) Hemoglobin 14.5g/dL (12.0-15.5) Hematocrit 41.8% (36.0-47.0) Mean Corpuscular Volume 88fL (79-100) Mean Corpuscular Hemoglobin 30pg (25-35) Mean Corpuscular Hemoglobin Concent 35g/dL (31-37) Red Cell Distribution Width 13.0% (11.5-14.5) Platelet Count 206x10^3/uL (140-400) Neutrophils (%) (Auto) 70% (31-73) Lymphocytes (%) (Auto) 20% (24-48) Monocytes (%) (Auto) 7% (0-9) Eosinophils (%) (Auto) 2% (0-3) Basophils (%) (Auto) 1% (0-3) Neutrophils # (Auto) 10.4x10^3uL (1.8-7.7) Lymphocytes # (Auto) 3.0x10^3/uL (1.0-4.8) Monocytes # (Auto) 1.0x10^3/uL (0.0-1.1) Eosinophils # (Auto) 0.3x10^3/uL (0.0-0.7) Basophils # (Auto) 0.1x10^3/uL (0.0-0.2) Sodium Level 137mmol/L (136-145) Potassium Level 3.3mmol/L (3.5-5.1) Chloride Level 97mmol/L (98-107) Carbon Dioxide Level 33mmol/L (21-32) Anion Gap 7 (6-14) Blood Urea Nitrogen 17mg/dL (7-20) Creatinine 0.9mg/dL (0.6-1.0) Estimated GFR (Cockcroft-Gault) 60.6 Glucose Level 109mg/dL (70-99) Calcium Level 8.9mg/dL (8.5-10.1) Total Bilirubin 0.5mg/dL (0.2-1.0) Direct Bilirubin 0.1mg/dL (0.0-0.2) Aspartate Amino Transf (AST/SGOT) 18U/L (15-37) Alanine Aminotransferase (ALT/SGPT) 25U/L (14-59) Alkaline Phosphatase 96U/L (46-116) Troponin I Quantitative < 0.017ng/mL (0.000-0.055) Total Protein 7.1g/dL (6.4-8.2) Albumin 3.9g/dL (3.4-5.0) Lipase 162U/L (73-393) Objective Assessment Hepatic complex cyst vs abscess Leukocytosis Acute onset RUQ abdominal pain GERD HTN Plan Plan of Care Await IR for bx and cultures Repeat CBC in am. Pain management per primary Zosyn Dr. Sims, GI Thank you [phone] Attending Co-Sign The patient was seen and interviewed as well as examined at the bedside. The chart was reviewed. The case was discussed. Agree with the plan of care. JOHN LOAIZA APRN Sep 09, 2016 13:22 CAL RUST MD Sep 09, 2016 15:13
--- NOTE | 2016-09-09 14:06 | RAD ---
3 view right rib detail series History: Atraumatic right rib pain in the axillary region and mid thorax region. Findings: No acute rib fracture or osteolytic process is seen. IMPRESSION: No acute right rib fracture.
[2016-09-09] MEDS: SIMVASTATIN 20 MG TABLET PO SCH (21:46)
--- NOTE | 2016-09-09 23:14 | CONS ---
DATE OF CONSULTATION: 09/08/2016 This is Toby Hoang, nurse practitioner, dictating for Dr. Scott Rust, Infectious Disease. REQUESTING PHYSICIAN: Dr. Mcdonald. REASON FOR CONSULTATION: Liver cyst versus abscess. HISTORY OF PRESENT ILLNESS: This patient is a pleasant 76-year-old woman who has been on a road trip with friends from [place]. She has recently traveled to [place], [place], back to [place] and then here to [place] by [facility]. During her trip she developed some constipation which was related with some milk of magnesia. She was enjoying her trip and was riding along to eat when she experienced acute onset of localized right upper quadrant pain. She initially thought this was related to a gas. After eating the pain became progressively worse. She denies associated symptoms including fevers, nausea or vomiting. She presented to [facility] ER, where she was found to have an elevated white blood cell count of 14,900. Lipase 162. Abdominal ultrasound showed an echogenic liver compatible with fatty liver disease and a large complex cystic lesion with somewhat thickened internal septations and measuring 7.0 x 4.9 x 6.[address] abdomen/pelvis with and without contrast revealed a 6.8 x 5.4 cm cystic structure inferior right lobe of the liver and a 1.4 cm lytic focus in the T12 vertebral body representing a possible cyst secondary to degeneration; however, lytic lesion is not completely excluded. She was evaluated by GI. Interventional Radiology has been consulted for biopsy and drainage. ID has been asked to consult for further evaluation. PAST MEDICAL HISTORY: Gastroesophageal reflux disease, hyperlipidemia, hypertension, hypothyroidism and degenerative disk disease. 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 SOCIAL HISTORY: She is . She lives in [facility], living a very active lifestyle. Nonsmoker. FAMILY HISTORY: Both her mother and sister of small cell lung cancer. ALLERGIES: No known drug allergies. MEDICATIONS: Piperacillin/tazobactam, atenolol, hydrochlorothiazide, Toradol, fentanyl, Synthroid, omega 3 fatty acid, Zofran, Protonix, Zocor, and Tylenol. REVIEW OF SYSTEMS: While eating lunch the patient experienced worsening right upper quadrant pain radiating around right flank area associated with sweating and a brief period of nausea without vomiting. The pain has since settled down during our interview. She denies previous episodes of such pain. Denies headache, nasal/sinus congestion or sore throat. She has occasional cough early in the morning. Denies shortness of air or wheezing. Denies chest pain, palpitations or swelling. Denies diarrhea or constipation. Denies dysuria, frequency or urgency. Denies fevers, chills or aches. Denies joint pains or swelling. PHYSICAL EXAMINATION: GENERAL: female standing near the side of the bed, rocking back and forth. VITAL SIGNS: Temperature 98.1, blood pressure 161/66, heart rate 67, respiratory rate 19, pulse oximetry is 94% on room air. Weight is 166 pounds. HEENT: Pupils equally round, reactive. Normal conjunctivae. Oral mucosa is pink and moist. NECK: Supple, no adenopathy present. LUNGS: Clear to auscultation. HEART: Normal S1 and S2. ABDOMEN: Obese, bowel sounds are present, soft, nontender to light palpation. EXTREMITIES: No gross edema or cyanosis. SKIN: Without rash. Warm to touch. NEUROLOGIC: Alert and oriented x 3. Moves all extremities. She is ambulatory. LABORATORY DATA: On admission, WBC 14.9, hemoglobin 14.5, platelet count 206,000. Sodium 137, potassium 3.3, creatinine 0.9, BUN 17, glucose 109, total bilirubin 0.5, AST 18, ALT 25. Troponin less than 0.017, albumin 3.9, lipase 162. IMAGING STUDIES: Abdominal ultrasound and CT scan of the abdomen and pelvis per HPI. Chest x-ray shows no acute processes. X-ray of right ribs pending. IMPRESSION: 1. Hepatic complex cyst versus abscess. 2. Leukocytosis. 3. Acute onset right upper quadrant abdominal pain. 4. Gastroesophageal reflux disease. 5. Hypertension. PLAN: Await on Interventional Radiology for biopsy and cultures. Repeat a CBC in the morning. Pain management per primary physician. Continue Zosyn. Thank you, Dr. Mcdonald for asking us to participate in this patient's care. Should you have further questions or concerns, please call. SCOTT RUST MD DR: MEDINA/fatuma JOB#: [id number] / [id number]
[2016-09-10] MEDS: PIPERACILLIN/TAZOBACTAM 3.375 GM in IV NORMAL SALINE 50ML 50 ML IV SCH ×5 (00:13→23:56)
[2016-09-10 03:00] VITALS: BP 98/60
[2016-09-10 05:23] LABS: BASO # 0.1 x10^3/uL (0.0-0.2); BASO % 1 % (0-3); EOS % 3 % (0-3); HEMATOCRIT 37.1 % (36.0-47.0); HEMOGLOBIN 12.9 g/dL (12.0-15.5); LYMPH # 3.5 x10^3/uL (1.0-4.8); LYMPH % 33 % (24-48); MEAN CORPUSCULAR HEMOGLOBIN 30 pg (25-35); MEAN CORPUSCULAR HGB CONC 35 g/dL (31-37); MEAN CORPUSCULAR VOLUME 88 fL (79-100); MONO % 10 % (0-9); NEUT % 53 % (31-73); PLATELET COUNT 178 x10^3/uL (140-400); RED BLOOD COUNT 4.23 x10^6/uL (3.50-5.40); WHITE BLOOD COUNT 10.4 x10^3/uL (4.0-11.0)
[2016-09-10] MEDS: LEVOTHYROXINE 50 MCG TABLET PO SCH (05:45)
[2016-09-10] MEDS: PANTOPRAZOLE 40 MG TABLET.DR. PO SCH (05:45)
[2016-09-10 07:00] VITALS: BP 159/69
[2016-09-10] MEDS: HYDROcodone/APAP 5/325MG 1 TAB TABLET PO PRN (08:03)
[2016-09-10] MEDS: OMEGA-3 FATTY ACIDS/FISH OIL 1,000 MG CAPSULE. PO SCH (08:04)
[2016-09-10] MEDS: ASPIRIN ENTERIC COATED 81 MG TABLET.DR. PO SCH (08:04)
[2016-09-10] MEDS: ATENOLOL 50 MG TABLET. PO SCH (08:04)
[2016-09-10] MEDS: hydroCHLOROthiazide 25 MG TABLET PO SCH (08:04)
[2016-09-10 11:00] VITALS: BP 147/56
[2016-09-10] MEDS: MAGNESIUM HYDROXIDE 2,400 MG/30 ML ORAL.SUSP. PO PRN (11:05)
--- NOTE | 2016-09-10 12:07 | PDOC ---
Infectious Disease Note Subjective Subjective RUQ sore feeling constipated again. ROS ROS GEN: Denies fevers, chills, sweats CV: Denies chest pain RESP: Denies shortness of air, cough GI: Denies n/v NEURO: Denies confusion, dizziness MSK: Denies weakness, joint pain/swelling Vital Sign Vital Signs Vital Signs Date Time Temp Pulse Resp B/P Pulse Ox O2 Delivery O2 Flow Rate FiO2 09/10/16 11:00 97.5 62 18 147/56 94 Room Air 97.5 Physical Exam PHYSICAL EXAM GENERAL: Lying down, relaxed appearance. HEENT: PERRL. Oral mucosa pink and moist NECK: Supple, no adenopathy present. LUNGS: Clear to auscultation. HEART: Normal S1 and S2. ABDOMEN: Obese, bowel sounds are present, soft, nontender EXTREMITIES: No gross edema or cyanosis. SKIN: Without rash. Warm to touch. NEUROLOGIC: Alert and oriented x 3. Moves all extremities. Labs Lab Laboratory Tests Test 09/10/16 04:10 White Blood Count 10.4x10^3/uL (4.0-11.0) Red Blood Count 4.23x10^6/uL (3.50-5.40) Hemoglobin 12.9g/dL (12.0-15.5) Hematocrit 37.1% (36.0-47.0) Mean Corpuscular Volume 88fL (79-100) Mean Corpuscular Hemoglobin 30pg (25-35) Mean Corpuscular Hemoglobin Concent 35g/dL (31-37) Red Cell Distribution Width 13.0% (11.5-14.5) Platelet Count 178x10^3/uL (140-400) Neutrophils (%) (Auto) 53% (31-73) Lymphocytes (%) (Auto) 33% (24-48) Monocytes (%) (Auto) 10% (0-9) Eosinophils (%) (Auto) 3% (0-3) Basophils (%) (Auto) 1% (0-3) Neutrophils # (Auto) 5.5x10^3uL (1.8-7.7) Lymphocytes # (Auto) 3.5x10^3/uL (1.0-4.8) Monocytes # (Auto) 1.0x10^3/uL (0.0-1.1) Eosinophils # (Auto) 0.3x10^3/uL (0.0-0.7) Basophils # (Auto) 0.1x10^3/uL (0.0-0.2) Objective Assessment Hepatic complex cyst vs abscess Leukocytosis, improved Acute onset RUQ abdominal pain GERD HTN Plan Plan of Care Zosyn Await IR for bx and cultures Pain management per primary Zosyn Attending Co-Sign The patient was seen and interviewed as well as examined at the bedside. The chart was reviewed. The case was discussed. Agree with the plan of care. JOHN LOAIZA APRN Sep 10, 2016 12:07 CAL RUST MD Sep 10, 2016 13:12
--- NOTE | 2016-09-10 12:33 | PDOC ---
GI PROGRESS NOTES Date Date/Time DATE: 09/10/16 TIME: 12:31 Subjective Subjective still with RUQ pain- improved on pain meds awaiting IR consult and cyst drainage Objective Vitals Vital Signs Date Time Temp Pulse Resp B/P Pulse Ox O2 Delivery O2 Flow Rate FiO2 09/10/16 11:00 97.5 62 18 147/56 94 Room Air 97.5 09/10/16 08:04 66 159/69 09/10/16 08:03 93 Room Air 09/10/16 07:00 97.9 66 19 159/69 93 Room Air 97.9 09/10/16 03:00 97.7 71 20 98/60 96 Room Air 97.7 09/09/16 23:00 97.5 59 20 123/58 98 Room Air 97.5 09/09/16 19:00 98.8 62 20 121/63 100 Room Air 98.8 09/09/16 18:23 96 Room Air 09/09/16 17:23 96 Room Air 09/09/16 15:00 98.1 68 19 152/62 96 Room Air 98.1 Labs Labs Laboratory Tests Test 09/10/16 04:10 White Blood Count 10.4x10^3/uL (4.0-11.0) Red Blood Count 4.23x10^6/uL (3.50-5.40) Hemoglobin 12.9g/dL (12.0-15.5) Hematocrit 37.1% (36.0-47.0) Mean Corpuscular Volume 88fL (79-100) Mean Corpuscular Hemoglobin 30pg (25-35) Mean Corpuscular Hemoglobin Concent 35g/dL (31-37) Red Cell Distribution Width 13.0% (11.5-14.5) Platelet Count 178x10^3/uL (140-400) Neutrophils (%) (Auto) 53% (31-73) Lymphocytes (%) (Auto) 33% (24-48) Monocytes (%) (Auto) 10% (0-9) Eosinophils (%) (Auto) 3% (0-3) Basophils (%) (Auto) 1% (0-3) Neutrophils # (Auto) 5.5x10^3uL (1.8-7.7) Lymphocytes # (Auto) 3.5x10^3/uL (1.0-4.8) Monocytes # (Auto) 1.0x10^3/uL (0.0-1.1) Eosinophils # (Auto) 0.3x10^3/uL (0.0-0.7) Basophils # (Auto) 0.1x10^3/uL (0.0-0.2) Physical Exam Physical Exam VSS afeb Neck supple chest clear cor- RRR abd- tender lateral right side just under ribs- no mass - rest of abd NONTENDER- normal bowel sounds extrem - NO CCE Neuro- alert non focal Assessment Assessment Liver cyst- large- likely source for pain- on abx- await IR drainage tomorrow MIld constipation- had BM several days ago without relief of pain- monitor and treat PRN- on regular diet but will make NPO for IR tomorrow Problems: FERNANDO AMBROSE MD Sep 10, 2016 12:33
--- NOTE | 2016-09-10 14:57 | PDOC ---
PROGRESS NOTES Chief Complaint Chief Complaint CC: ABDOMINAL PAIN A/P 1. Hepatic complex cyst versus abscess: IR consulted, aspiration on Sunday. continue current abx, RIB X-ray no fractures, ? lytic lesion on spine, need out pt follow up. GI/ID following. 2. Leukocytosis: better. 3. Acute onset right upper quadrant abdominal pain: due to above, see orders for pain control. 4. Gastroesophageal reflux disease. 5. Hypertension: stable 6. DVT prophylax: Lovenox Vitals Vitals Vital Signs Date Time Temp Pulse Resp B/P Pulse Ox O2 Delivery O2 Flow Rate FiO2 09/10/16 11:00 97.5 62 18 147/56 94 Room Air 97.5 Physical Exam General: Alert, Oriented X3 Heart: Normal S1, Normal S2 Lungs: Clear, Wheezing Abdomen: Normal bowel sounds, Other (tender RUQ) Labs LABS Laboratory Tests Test 09/10/16 04:10 White Blood Count 10.4x10^3/uL (4.0-11.0) Red Blood Count 4.23x10^6/uL (3.50-5.40) Hemoglobin 12.9g/dL (12.0-15.5) Hematocrit 37.1% (36.0-47.0) Mean Corpuscular Volume 88fL (79-100) Mean Corpuscular Hemoglobin 30pg (25-35) Mean Corpuscular Hemoglobin Concent 35g/dL (31-37) Red Cell Distribution Width 13.0% (11.5-14.5) Platelet Count 178x10^3/uL (140-400) Neutrophils (%) (Auto) 53% (31-73) Lymphocytes (%) (Auto) 33% (24-48) Monocytes (%) (Auto) 10% (0-9) Eosinophils (%) (Auto) 3% (0-3) Basophils (%) (Auto) 1% (0-3) Neutrophils # (Auto) 5.5x10^3uL (1.8-7.7) Lymphocytes # (Auto) 3.5x10^3/uL (1.0-4.8) Monocytes # (Auto) 1.0x10^3/uL (0.0-1.1) Eosinophils # (Auto) 0.3x10^3/uL (0.0-0.7) Basophils # (Auto) 0.1x10^3/uL (0.0-0.2) Assessment and Plan Assessmemt and Plan Problems Medical Problems: (1) Abdominal pain Status: Acute (2) Liver cyst Status: Acute Problems: Comment Review of Relevant I have reviewed the following items adali (where applicable) has been applied. Labs Laboratory Tests Test 09/08/16 15:10 09/10/16 04:10 White Blood Count 14.9x10^3/uL (4.0-11.0) 10.4x10^3/uL (4.0-11.0) Red Blood Count 4.78x10^6/uL (3.50-5.40) 4.23x10^6/uL (3.50-5.40) Hemoglobin 14.5g/dL (12.0-15.5) 12.9g/dL (12.0-15.5) Hematocrit 41.8% (36.0-47.0) 37.1% (36.0-47.0) Mean Corpuscular Volume 88fL (79-100) 88fL (79-100) Mean Corpuscular Hemoglobin 30pg (25-35) 30pg (25-35) Mean Corpuscular Hemoglobin Concent 35g/dL (31-37) 35g/dL (31-37) Red Cell Distribution Width 13.0% (11.5-14.5) 13.0% (11.5-14.5) Platelet Count 206x10^3/uL (140-400) 178x10^3/uL (140-400) Neutrophils (%) (Auto) 70% (31-73) 53% (31-73) Lymphocytes (%) (Auto) 20% (24-48) 33% (24-48) Monocytes (%) (Auto) 7% (0-9) 10% (0-9) Eosinophils (%) (Auto) 2% (0-3) 3% (0-3) Basophils (%) (Auto) 1% (0-3) 1% (0-3) Neutrophils # (Auto) 10.4x10^3uL (1.8-7.7) 5.5x10^3uL (1.8-7.7) Lymphocytes # (Auto) 3.0x10^3/uL (1.0-4.8) 3.5x10^3/uL (1.0-4.8) Monocytes # (Auto) 1.0x10^3/uL (0.0-1.1) 1.0x10^3/uL (0.0-1.1) Eosinophils # (Auto) 0.3x10^3/uL (0.0-0.7) 0.3x10^3/uL (0.0-0.7) Basophils # (Auto) 0.1x10^3/uL (0.0-0.2) 0.1x10^3/uL (0.0-0.2) Sodium Level 137mmol/L (136-145) Potassium Level 3.3mmol/L (3.5-5.1) Chloride Level 97mmol/L (98-107) Carbon Dioxide Level 33mmol/L (21-32) Anion Gap 7 (6-14) Blood Urea Nitrogen 17mg/dL (7-20) Creatinine 0.9mg/dL (0.6-1.0) Estimated GFR (Cockcroft-Gault) 60.6 Glucose Level 109mg/dL (70-99) Calcium Level 8.9mg/dL (8.5-10.1) Total Bilirubin 0.5mg/dL (0.2-1.0) Direct Bilirubin 0.1mg/dL (0.0-0.2) Aspartate Amino Transf (AST/SGOT) 18U/L (15-37) Alanine Aminotransferase (ALT/SGPT) 25U/L (14-59) Alkaline Phosphatase 96U/L (46-116) Troponin I Quantitative < 0.017ng/mL (0.000-0.055) Total Protein 7.1g/dL (6.4-8.2) Albumin 3.9g/dL (3.4-5.0) Lipase 162U/L (73-393) Laboratory Tests Test 09/10/16 04:10 White Blood Count 10.4x10^3/uL (4.0-11.0) Red Blood Count 4.23x10^6/uL (3.50-5.40) Hemoglobin 12.9g/dL (12.0-15.5) Hematocrit 37.1% (36.0-47.0) Mean Corpuscular Volume 88fL (79-100) Mean Corpuscular Hemoglobin 30pg (25-35) Mean Corpuscular Hemoglobin Concent 35g/dL (31-37) Red Cell Distribution Width 13.0% (11.5-14.5) Platelet Count 178x10^3/uL (140-400) Neutrophils (%) (Auto) 53% (31-73) Lymphocytes (%) (Auto) 33% (24-48) Monocytes (%) (Auto) 10% (0-9) Eosinophils (%) (Auto) 3% (0-3) Basophils (%) (Auto) 1% (0-3) Neutrophils # (Auto) 5.5x10^3uL (1.8-7.7) Lymphocytes # (Auto) 3.5x10^3/uL (1.0-4.8) Monocytes # (Auto) 1.0x10^3/uL (0.0-1.1) Eosinophils # (Auto) 0.3x10^3/uL (0.0-0.7) Basophils # (Auto) 0.1x10^3/uL (0.0-0.2) Medications Current Medications Ketorolac Tromethamine (Toradol) 10 mg 1X ONCE IV Last administered on 15:13; Start 09/08/16 at 14:45; Stop 09/08/16 at 14:46; Status DC Piperacillin Sod/ Tazobactam Sod 1 each 1 each PRN DAILY PRN MC SEE COMMENTS; Start 09/08/16 at 16:45 Piperacillin Sod/ Tazobactam Sod/ Sodium Chloride (Zosyn/Iv Sodium Chloride 0.9 % 50ml) 50 ml @ 100 mls/hr 1X ONCE IV Last administered on 09/08/16 17:01; Start 09/08/16 at 16:45; Stop 09/08/16 at 17:14; Status DC Iohexol (Omnipaque 300 Mg/ml) 75 ml 1X ONCE IV Last administered on 09/08/16 17:00; Start 09/08/16 at 17:00; Stop 09/08/16 at 17:01; Status DC Info (Do NOT chart on this entry -- for MONITORING) 1 each PRN DAILY PRN MC SEE COMMENTS; Start 09/08/16 at 17:00; Stop 09/10/16 at 16:59 Ondansetron HCl (Zofran) 4 mg PRN Q8HRS PRN IV NAUSEA/VOMITING Last administered on 09/08/16 20:11; Start 09/08/16 at 17:15; Stop 09/09/16 at 17:14 ; Status DC Fentanyl Citrate (Fentanyl 2ml Vial) 50 mcg PRN Q2HR PRN IV PAIN Last administered on 09/08/16 19:56; Start 09/08/16 at 17:15; Stop 09/09/16 at 10:31 ; Status DC Acetaminophen 650 mg 650 mg PRN Q4HRS PRN PO FEVER; Start 09/08/16 at 17:15; Stop 09/09/16 at 17:14; Status DC Piperacillin Sod/ Tazobactam Sod/ Sodium Chloride (Zosyn/Iv Sodium Chloride 0.9 % 50ml) 50 ml @ 100 mls/hr Q6HRS IV Last administered on 09/10/16 11:06; Start 09/09/16 at 00:00 Aspirin (Ecotrin) 81 mg DAILY PO Last administered on 09/10/16 08:04; Start at 09:00 Atenolol (Tenormin) 50 mg DAILY PO Last administered on 09/10/16 08:04; Start 09/08/16 at 22:00 Hydrochlorothiazide (Hydrodiuril) 25 mg DAILY PO Last administered on 08:04; Start 09/08/16 at 22:00 Levothyroxine Sodium (Synthroid) 50 mcg DAILY07 PO Last administered on 05:45; Start 09/09/16 at 07:00 Simvastatin (Zocor) 20 mg QHS PO Last administered on 09/09/16 21:46; Start at 22:00 Pantoprazole Sodium (Protonix) 40 mg DAILYAC PO Last administered on 09/10/16 05:45; Start 09/09/16 at 07:30 Fish Oil (Fish Oil) 1,000 mg DAILY PO Last administered on 09/10/16 08:04; Start 09/09/16 at 09:00 Acetaminophen/ Hydrocodone Bitart (Lortab 5/325) 1 tab PRN Q4HRS PRN PO MODERATE PAIN Last administered on 09/10/16 08:03; Start 09/08/16 at 21:45 Magnesium Hydroxide (Milk Of Magnesia) 2,400 mg PRN DAILY PRN PO CONSTIPATION Last administered on 09/10/16 11:05; Start 09/10/16 at 11:00 Docusate Sodium (Colace) 100 mg DAILY PO ; Start 09/10/16 at 11:00 Active Scripts Active Reported Fish Oil Concentrate Softgel ([place]-3 Fatty Acids/Fish Oil) 1 Each Capsule 1 Each PO Levothyroxine Sodium 50 Mcg Tablet 1 Tab PO DAILY Aspir 81 (Aspirin) 81 Mg Tablet.dr 1 Tab PO DAILY Omeprazole 20 Mg Capsule.dr 1 Cap PO DAILY Hydrochlorothiazide Tablet (Hydrochlorothiazide) 25 Mg Tablet 1 Tab PO DAILY Atenolol 50 Mg Tablet 1 Tab PO DAILY Simvastatin 20 Mg Tablet 1 Tab PO QHS Vitals/I & O Vital Sign - Last 24 Hours 09/09/16 09/09/16 09/09/16 09/09/16 15:00 17:23 19:00 23:00 Temp 98.1 98.8 97.5 98.1 98.8 97.5 Pulse 68 62 59 Resp 19 20 20 B/P 152/62 121/63 123/58 Pulse Ox 96 96 100 98 O2 Delivery Room Air Room Air Room Air Room Air 09/10/16 09/10/16 09/10/16 09/10/16 03:00 07:00 08:03 08:04 Temp 97.7 97.9 97.7 97.9 Pulse 71 66 66 Resp 20 19 B/P 98/60 159/69 159/69 Pulse Ox 96 93 93 O2 Delivery Room Air Room Air Room Air 09/10/16 09/10/16 09:03 11:00 Temp 97.5 97.5 Pulse 62 Resp 18 B/P 147/56 Pulse Ox 94 94 O2 Delivery Room Air Room Air Intake and Output 09/09/16 09/09/16 09/10/16 15:00 23:00 07:00 Intake Total 250 ml 1100 ml 120 ml Balance 250 ml 1100 ml 120 ml TUAN YOUNG MD Sep 10, 2016 14:57
[2016-09-10 15:00] VITALS: BP_SYST 118; BP_SYST 98; BP_DIAS 43; BP_DIAS 45
[2016-09-10] MEDS: DOCUSATE SODIUM 100 MG CAPSULE. PO SCH (17:20)
[2016-09-10 19:00] VITALS: BP 99/66
[2016-09-10] MEDS: SIMVASTATIN 20 MG TABLET PO SCH (20:15)
--- NOTE | 2016-09-10 22:18 | HP ---
ADMIT DATE: 09/09/2016 CHIEF COMPLAINT: Abdominal pain and rib pain. HISTORY OF PRESENT ILLNESS: This 76-year-old female patient with prior history of hypertension, presented to the ER with right upper quadrant abdominal pain, started midafternoon yesterday all of a sudden, it is located in the right upper quadrant and little posterior. She denies any fever, chills, trauma, nausea, vomiting, hematemesis, or hematochezia. She denies any prior history of liver problems. She lives in [place], but she is here for work travel. The patient has a history of travel, she moves to different cities for her work reason. PAST MEDICAL HISTORY: Hypertension, hyperlipidemia, GERD. PAST SURGICAL HISTORY: Hysterectomy and left shoulder surgery. PERSONAL HISTORY: No smoking, no alcohol, no drug abuse. FAMILY HISTORY: Unknown, possible hypertension. ALLERGIES: HMG-COA REDUCTASE INHIBTORS, FENOFIBRATE, GEMFIBROZIL, NIACIN. REVIEW OF SYSTEMS AND PHYSICAL EXAMINATION: Please see my electronic H and P. LABORATORY DATA: Chemistry: Sodium 137, potassium 3.3, chloride is 97, carbon dioxide 33, BUN is 17, creatinine 0.9. Troponin 0.017. Hematology: WBC is 14.9, hemoglobin 14.5, MCV 88, platelets 206. IMAGING STUDIES: 1. Abdomen and pelvis CT showed 6.8 cm cystic structure identified in the right lobe of the liver. There is a lytic focus measuring 1.4 cm identified in the T12 vertebra, could be a cyst secondary to degeneration; however, lytic lesion is not completely ruled out. 2. Chest x-ray, borderline cardiomegaly, no acute abnormality identified. 3. Ultrasound abdomen showed large complex cystic lesion. 4. Echogenic liver compatible with fatty liver disease. ASSESSMENT: 1. Right upper quadrant abdominal pain, possibly due to liver cyst, complex, present on admission. 2. Questionable T12 vertebral body lytic lesion, needs to verify either with CT or MRI. 3. Hypertension. 4. Hypothyroidism. PLAN: 1. She has been admitted to the hospital for pain control and IV antibiotics. At this moment, she was started on Zosyn. We will resume all her home medications. Pain control with IV morphine and hydrocodone. 2. Infectious Disease and Gastroenterology has been consulted. Possible differentials for liver cyst include infectious process versus hepatic cyst versus biliary cystadenoma. 3. Chronic conditions, hypertension has been controlled. 4. Hypothyroidism, stable. TUAN YOUNG MD DR: MILKA/fatuma JOB#: [id number] / [id number] UTE
[2016-09-10 23:00] VITALS: BP 134/56
[2016-09-11] VITALS (21 sets, daily range): BP systolic 120–183; BP diastolic 56–79
[2016-09-11] MEDS: PIPERACILLIN/TAZOBACTAM 3.375 GM in IV NORMAL SALINE 50ML 50 ML IV SCH ×4 (05:47→23:00)
[2016-09-11] MEDS: LEVOTHYROXINE 50 MCG TABLET PO SCH (05:48)
[2016-09-11] MEDS: PANTOPRAZOLE 40 MG TABLET.DR. PO SCH (05:48)
[2016-09-11] MEDS ORDERED: LIDOCAINE 1% / SOD BICARB 8.4% 20 ML VIAL. IJ ONE ×2 (08:47→09:45)
[2016-09-11] MEDS ORDERED: fentaNYL PF VIAL 250 MCG/5 ML VIAL ONE (08:56)
[2016-09-11] MEDS ORDERED: MIDAZOLAM HCL/PF 5 MG/5 ML VIAL. ONE (08:56)
[2016-09-11] MEDS ORDERED: fentaNYL PF VIAL 250 MCG/5 ML VIAL IV ONE (09:45)
[2016-09-11] MEDS ORDERED: MIDAZOLAM HCL/PF 5 MG/5 ML VIAL. IV ONE (09:45)
--- NOTE | 2016-09-11 10:36 | PDOC ---
MODERATE SEDATION ASSESSMENT RISKS/ALTERNATIVES Risks/Alternatives Risks and alternatives of this type of sedation and procedure discussed with: RISK/ALTERNATIVES: Patient H & P ON CHART H & P H & P on chart and reviewed for co-morbid conditions and appropriate labs. H&P ON CHART: Yes STATUS PREG STATUS ASSESSED: N/A MEDS/ALLERGIES REVIEWED Meds/Allergies Reviewed Medications and Allergies including time and route of recently administered narcotics and sedatives. MEDS/ALLERGIES REVIEWED: Yes ASA RATING ASA RATING: II AIRWAY ASSESSMENT Airway Assessment Airway patency, oral function limitations, presence of caps, crowns, dentures, partials, and ability to extend neck assessed. AIRWAY ASSESSMENT: Yes MALLAMPATI SCORE MALLAMPATI SCORE: III PRE-SEDATION ASSESSMENT PRE-SEDATION ASSESSMENT: Yes MICHAEL RAGLAND MD September 11, 2016 10:36
--- NOTE | 2016-09-11 10:47 | PDOC ---
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 abscess Post-Procedure Diagnosis Post-Procedure Diagnosis Same Procedure Performed Procedure Performed CT guided liver aspirate with drain placement Type of Anesthesia Type of Anesthesia Local + Mod sedation Estimated Blood Loss EBL: Trace Specimens Specimans 100 cc complex fluid, appears grossly bloody and bilious, removed-----samples to lab for stat gram stain, culture and cytology. Drain/Tubes Drains/Tubes 8F liver drainage catheter---to bulb suction Condition of Patient Condition of Patient Stable. No apparent complication. Disposition Disposition From IR/CT return to 510 for recovery. F/U with HIMS, GI and ID. Leave drain in place pending culture results. Full report to follow. MICHAEL RAGLAND MD September 11, 2016 10:47
--- NOTE | 2016-09-11 10:54 | PDOC ---
Infectious Disease Note Subjective Subjective feeling better, drain placed, does not look like abscess, bloody bilious fluid came out ROS ROS GEN: Denies fevers, chills, sweats HEENT: Denies blurred vision, sore throat CV: Denies chest pain RESP: Denies shortness of air, cough GI: Denies n/v/d NEURO: Denies confusion, dizziness MSK: Denies weakness, joint pain/swelling Vital Sign Vital Signs Vital Signs Date Time Temp Pulse Resp B/P Pulse Ox O2 Delivery O2 Flow Rate FiO2 09/11/16 10:00 64 14 145/59 92 Room Air 09/11/16 09:42 2.0 09/11/16 07:00 98.2 98.2 Physical Exam PHYSICAL EXAM GENERAL: NAD, Alert HEENT: PERRL, OC/OP NECK: Supple, no JVD, no LN LUNGS: Clear HEART: S1S2, no gallop, no murmur ABD: Soft, NT, no organomegaly, no rebound EXT: No edema, no cyanosis 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
[2016-09-11] MEDS: MAGNESIUM HYDROXIDE 2,400 MG/30 ML ORAL.SUSP. PO PRN (12:18)
[2016-09-11] MEDS: HYDROcodone/APAP 5/325MG 1 TAB TABLET PO PRN ×2 (12:18→23:00)
[2016-09-11] MEDS: hydroCHLOROthiazide 25 MG TABLET PO SCH (12:18)
[2016-09-11] MEDS: DOCUSATE SODIUM 100 MG CAPSULE. PO SCH (12:18)
[2016-09-11] MEDS: OMEGA-3 FATTY ACIDS/FISH OIL 1,000 MG CAPSULE. PO SCH (12:19)
[2016-09-11] MEDS: ASPIRIN ENTERIC COATED 81 MG TABLET.DR. PO SCH (12:19)
[2016-09-11] MEDS: ATENOLOL 50 MG TABLET. PO SCH (12:19)
[2016-09-11 12:54] LABS: BF COLOR AMBER
[2016-09-11 12:56] LABS: BF CLARITY TURBID
--- NOTE | 2016-09-11 13:16 | PDOC ---
Subjective: Subjective: Says drain fell on floor, drops of blood spilled. RUQ discomfort is better. Objective: Objective: Had IR aspiration/drain placement this morning. Vital Signs: Vital Signs Date Time Temp Pulse Resp B/P Pulse Ox O2 Delivery O2 Flow Rate FiO2 09/11/16 12:19 67 170/70 09/11/16 12:18 Room Air 09/11/16 10:51 96 09/11/16 10:00 14 09/11/16 09:42 2.0 09/11/16 07:00 98.2 98.2 Labs: Laboratory Tests Test 09/11/16 09:15 Body Fluid Source Ascites Body Fluid Color Rosana Body Fluid Clarity Turbid Body Fluid Nucleated Cells 17789/cmm Body Fluid Mononuclear WBCs (%) 5% Body Fluid Polymorphonuclear Cells 94% Body Fluid Total RBCs Counted 715791/cmm Body Fluid Other Cells (%) 1% PE: GEN: NAD, sitting on edge of bed LUNGS: clear anteriorly HEART: RRR ABD: RUQ drain - EMILIANA bloody NEURO/PSYCH: A & O 3 A/P: Hepatic cyst, RUQ pain -s/p drain, on atbx per ID -- Will review w/ Dr. Gomes. ARELY BROWN September 11, 2016 13:16
[2016-09-11] MEDS ORDERED: ONDANSETRON PF 4 MG/2 ML VIAL. IV PRN (14:00)
--- NOTE | 2016-09-11 14:05 | PDOC ---
PROGRESS NOTES Chief Complaint Chief Complaint CC: ABDOMINAL PAIN A/P 1. Hepatic complex cyst versus abscess: IR consulted, aspiration on Sunday. continue current abx, RIB X-ray no fractures, ? lytic lesion on spine, need out pt follow up. GI/ID following. 2. Leukocytosis: better. 3. Acute onset right upper quadrant abdominal pain: due to above, see orders for pain control. 4. Gastroesophageal reflux disease. 5. Hypertension: stable 6. DVT prophylax: Lovenox\ plan: fu with gi, ID on zosyn post hepatic drainage on 09/11 fu with cx, path History of Present Illness History of Present Illness post hepatic drainage on 09/11 Vitals Vitals Vital Signs Date Time Temp Pulse Resp B/P Pulse Ox O2 Delivery O2 Flow Rate FiO2 09/11/16 13:00 69 177/74 97 Room Air 09/11/16 10:00 14 09/11/16 09:42 2.0 09/11/16 07:00 98.2 98.2 Physical Exam General: Alert, Oriented X3 Heart: Normal S1, Normal S2 Lungs: Clear, Wheezing Abdomen: Normal bowel sounds, Other (tender RUQ, 1 hepatic EMILIANA with dark bloody drainage) Labs LABS Laboratory Tests Test 09/11/16 09:15 Body Fluid Source Ascites Body Fluid Color Rosana Body Fluid Clarity Turbid Body Fluid Nucleated Cells 78125/cmm Body Fluid Mononuclear WBCs (%) 5% Body Fluid Polymorphonuclear Cells 94% Body Fluid Total RBCs Counted 903938/cmm Body Fluid Other Cells (%) 1% Review of Systems Review of Systems no fever, chills, sob or chest pain Assessment and Plan Assessmemt and Plan Problems Medical Problems: (1) Abdominal pain Status: Acute (2) Liver cyst Status: Acute Problems: Comment Review of Relevant I have reviewed the following items adali (where applicable) has been applied. Labs Laboratory Tests Test 09/10/16 04:10 09/11/16 09:15 White Blood Count 10.4x10^3/uL (4.0-11.0) Red Blood Count 4.23x10^6/uL (3.50-5.40) Hemoglobin 12.9g/dL (12.0-15.5) Hematocrit 37.1% (36.0-47.0) Mean Corpuscular Volume 88fL (79-100) Mean Corpuscular Hemoglobin 30pg (25-35) Mean Corpuscular Hemoglobin Concent 35g/dL (31-37) Red Cell Distribution Width 13.0% (11.5-14.5) Platelet Count 178x10^3/uL (140-400) Neutrophils (%) (Auto) 53% (31-73) Lymphocytes (%) (Auto) 33% (24-48) Monocytes (%) (Auto) 10% (0-9) Eosinophils (%) (Auto) 3% (0-3) Basophils (%) (Auto) 1% (0-3) Neutrophils # (Auto) 5.5x10^3uL (1.8-7.7) Lymphocytes # (Auto) 3.5x10^3/uL (1.0-4.8) Monocytes # (Auto) 1.0x10^3/uL (0.0-1.1) Eosinophils # (Auto) 0.3x10^3/uL (0.0-0.7) Basophils # (Auto) 0.1x10^3/uL (0.0-0.2) Body Fluid Source Ascites Body Fluid Color Rosana Body Fluid Clarity Turbid Body Fluid Nucleated Cells 29319/cmm Body Fluid Mononuclear WBCs (%) 5% Body Fluid Polymorphonuclear Cells 94% Body Fluid Total RBCs Counted 186314/cmm Body Fluid Other Cells (%) 1% Laboratory Tests Test 09/11/16 09:15 Body Fluid Source Ascites Body Fluid Color Rosana Body Fluid Clarity Turbid Body Fluid Nucleated Cells 82609/cmm Body Fluid Mononuclear WBCs (%) 5% Body Fluid Polymorphonuclear Cells 94% Body Fluid Total RBCs Counted 631776/cmm Body Fluid Other Cells (%) 1% Microbiology 09/11/16 Gram Stain - Final, Complete Medications Current Medications Ketorolac Tromethamine (Toradol) 10 mg 1X ONCE IV Last administered on t 15:13; Start 09/08/16 at 14:45; Stop 09/08/16 at 14:46; Status DC Piperacillin Sod/ Tazobactam Sod 1 each 1 each PRN DAILY PRN MC SEE COMMENTS; Start 09/08/16 at 16:45 Piperacillin Sod/ Tazobactam Sod/ Sodium Chloride (Zosyn/Iv Sodium Chloride 0.9 % 50ml) 50 ml @ 100 mls/hr 1X ONCE IV Last administered on 09/08/16 17:01; Start 09/08/16 at 16:45; Stop 09/08/16 at 17:14; Status DC Iohexol (Omnipaque 300 Mg/ml) 75 ml 1X ONCE IV Last administered on 09/08/16 17:00; Start 09/08/16 at 17:00; Stop 09/08/16 at 17:01; Status DC Info (Do NOT chart on this entry -- for MONITORING) 1 each PRN DAILY PRN MC SEE COMMENTS; Start 09/08/16 at 17:00; Stop 09/10/16 at 16:59; Status DC Ondansetron HCl (Zofran) 4 mg PRN Q8HRS PRN IV NAUSEA/VOMITING Last administered on 09/08/16 20:11; Start 09/08/16 at 17:15; Stop 09/09/16 at 17:14 ; Status DC Fentanyl Citrate (Fentanyl 2ml Vial) 50 mcg PRN Q2HR PRN IV PAIN Last administered on 09/08/16 19:56; Start 09/08/16 at 17:15; Stop 09/09/16 at 10:31 ; Status DC Acetaminophen 650 mg 650 mg PRN Q4HRS PRN PO FEVER; Start 09/08/16 at 17:15; Stop 09/09/16 at 17:14; Status DC Piperacillin Sod/ Tazobactam Sod/ Sodium Chloride (Zosyn/Iv Sodium Chloride 0.9 % 50ml) 50 ml @ 100 mls/hr Q6HRS IV Last administered on 09/11/16 12:19; Start 09/09/16 at 00:00 Aspirin (Ecotrin) 81 mg DAILY PO Last administered on 09/11/16 12:19; Start at 09:00 Atenolol (Tenormin) 50 mg DAILY PO Last administered on 09/11/16 12:19; Start 09/08/16 at 22:00 Hydrochlorothiazide (Hydrodiuril) 25 mg DAILY PO Last administered on 09/11/16 12:18; Start 09/08/16 at 22:00 Levothyroxine Sodium (Synthroid) 50 mcg DAILY07 PO Last administered on 05:48; Start 09/09/16 at 07:00 Simvastatin (Zocor) 20 mg QHS PO Last administered on 09/10/16 20:15; Start at 22:00 Pantoprazole Sodium (Protonix) 40 mg DAILYAC PO Last administered on 09/11/16 05:48; Start 09/09/16 at 07:30 Fish Oil (Fish Oil) 1,000 mg DAILY PO Last administered on 09/11/16 12:19; Start 09/09/16 at 09:00 Acetaminophen/ Hydrocodone Bitart (Lortab 5/325) 1 tab PRN Q4HRS PRN PO MODERATE PAIN Last administered on 09/11/16 12:18; Start 09/08/16 at 21:45 Magnesium Hydroxide (Milk Of Magnesia) 2,400 mg PRN DAILY PRN PO CONSTIPATION Last administered on 09/11/16 12:18; Start 09/10/16 at 11:00 Docusate Sodium (Colace) 100 mg DAILY PO Last administered on 09/11/16 12:18; Start 09/10/16 at 11:00 Lidocaine/Sodium Bicarbonate (Buffered Lidocaine 1%) 20 ml STK-MED ONCE IJ ; Start 09/11/16 at 08:47; Stop 09/11/16 at 08:48; Status DC Midazolam HCl (Versed) 5 mg STK-MED ONCE .ROUTE ; Start 09/11/16 at 08:56; Stop 09/11/16 at 08:57; Status DC Fentanyl Citrate (Fentanyl 5ml Vial) 250 mcg STK-MED ONCE .ROUTE ; Start at 08:56; Stop 09/11/16 at 08:57; Status DC Lidocaine/Sodium Bicarbonate (Buffered Lidocaine 1%) 20 ml 1X ONCE IJ Last administered on 09/11/16 09:41; Start 09/11/16 at 09:45; Stop 09/11/16 at 09:46; Status DC Midazolam HCl (Versed) 3.5 mg 1X ONCE IV Last administered on 09/11/16 09:41; Start 09/11/16 at 09:45; Stop 09/11/16 at 09:46; Status DC Fentanyl Citrate (Fentanyl 5ml Vial) 150 mcg 1X ONCE IV Last administered on 09:42; Start 09/11/16 at 09:45; Stop 09/11/16 at 09:46; Status DC Active Scripts Active Reported Fish Oil Concentrate Softgel ([place]-3 Fatty Acids/Fish Oil) 1 Each Capsule 1 Each PO Levothyroxine Sodium 50 Mcg Tablet 1 Tab PO DAILY Aspir 81 (Aspirin) 81 Mg Tablet. 1 Tab PO DAILY Omeprazole 20 Mg Capsule. 1 Cap PO DAILY Hydrochlorothiazide Tablet (Hydrochlorothiazide) 25 Mg Tablet 1 Tab PO DAILY Atenolol 50 Mg Tablet 1 Tab PO DAILY Simvastatin 20 Mg Tablet 1 Tab PO QHS Vitals/I & O Vital Sign - Last 24 Hours 09/10/16 09/10/16 09/10/16 09/10/16 15:00 15:00 19:00 23:00 Temp 97.9 99.7 99.0 97.9 99.7 99.0 Pulse 62 76 64 Resp 18 18 18 B/P 118/43 98/45 99/66 134/56 Pulse Ox 94 95 94 O2 Delivery Room Air Room Air Room Air 09/11/16 09/11/16 09/11/16 09/11/16 03:00 07:00 08:00 09:08 Temp 98.1 98.2 98.1 98.2 Pulse 69 67 71 Resp 18 19 16 B/P 138/66 178/56 Pulse Ox 98 93 98 O2 Delivery Room Air Room Air Room Air Nasal Cannula O2 Flow Rate 2.0 09/11/16 09/11/16 09/11/16 09/11/16 09:16 09:22 09:27 09:32 Pulse 62 71 66 60 Resp 14 14 14 14 Pulse Ox 96 96 96 96 O2 Delivery Nasal Cannula Nasal Cannula Nasal Cannula Nasal Cannula O2 Flow Rate 2.0 2.0 2.0 2.0 09/11/16 09/11/16 09/11/16 09/11/16 09:33 09:36 09:42 09:42 Pulse 60 63 65 Resp 14 14 16 16 Pulse Ox 96 96 98 96 O2 Delivery Nasal Cannula Nasal Cannula Nasal Cannula O2 Flow Rate 2.0 2.0 2.0 09/11/16 09/11/16 09/11/16 09/11/16 10:00 10:15 10:30 10:51 Pulse 64 66 58 67 Resp 14 B/P 145/59 151/66 162/67 170/70 Pulse Ox 92 90 88 96 O2 Delivery Room Air Room Air Room Air Room Air 09/11/16 09/11/16 09/11/16 09/11/16 11:45 12:15 12:18 12:19 Pulse 79 83 67 B/P 174/75 183/75 170/70 Pulse Ox 98 97 O2 Delivery Room Air Room Air Room Air 09/11/16 13:00 Pulse 69 B/P 177/74 Pulse Ox 97 O2 Delivery Room Air Intake and Output 09/10/16 09/10/16 09/11/16 15:00 23:00 07:00 Intake Total 750 ml 700 ml 0 ml Balance 750 ml 700 ml 0 ml CAROLE MURILLO MD September 11, 2016 14:04
[2016-09-11] MEDS: SIMVASTATIN 20 MG TABLET PO SCH (21:00)
[2016-09-12 03:00] VITALS: BP 148/55
[2016-09-12 05:07] LABS: BASO # 0.1 x10^3/uL (0.0-0.2); BASO % 1 % (0-3); EOS % 4 % (0-3); HEMOGLOBIN 13.1 g/dL (12.0-15.5); LYMPH # 3.8 x10^3/uL (1.0-4.8); LYMPH % 36 % (24-48); MEAN CORPUSCULAR HEMOGLOBIN 30 pg (25-35); MEAN CORPUSCULAR HGB CONC 35 g/dL (31-37); MEAN CORPUSCULAR VOLUME 88 fL (79-100); MONO % 10 % (0-9); NEUT % 49 % (31-73); PLATELET COUNT 189 x10^3/uL (140-400); RED BLOOD COUNT 4.33 x10^6/uL (3.50-5.40); RED CELL DISTRIBUTION WIDTH 13.2 % (11.5-14.5); WHITE BLOOD COUNT 10.5 x10^3/uL (4.0-11.0)
[2016-09-12 05:24] LABS: CALCIUM 8.7 mg/dL (8.5-10.1); GFR 53.6; POTASSIUM 3.1 mmol/L (3.5-5.1)
[2016-09-12] MEDS: PANTOPRAZOLE 40 MG TABLET.DR. PO SCH (05:37)
[2016-09-12] MEDS: LEVOTHYROXINE 50 MCG TABLET PO SCH (05:37)
[2016-09-12] MEDS: PIPERACILLIN/TAZOBACTAM 3.375 GM in IV NORMAL SALINE 50ML 50 ML IV SCH ×3 (05:37→18:00)
[2016-09-12 07:30] VITALS: BP 106/67
--- NOTE | 2016-09-12 07:45 | RAD ---
CT-guided catheter drainage of large hepatic complex cyst Indication: 76-year-old female with right upper quadrant pain, and with a large 6 cm complex cystic lesion within posterior segment right lobe of liver. Image guided aspirate, with possible drain placement, as been requested. Anesthesia: 38 minutes moderate sedation was provided utilizing a total of 3.5 mg Versed and 150 mcg fentanyl, IV. The patient was appropriately monitored by a qualified independent observer throughout the time of moderate sedation. Consent: The procedure was explained in its entirety to the patient and/or the patient's designated inside outside sales representative by a member of the treatment team. This included a discussion of risks and benefits and acceptable alternatives to the procedure, as well as expected consequences of no treatment at all. Discussion of risks included, but was not limited to, those that are most frequent and those that are rare, but possibly severe or life-threatening, as well as the possibility of unforeseen complications. Procedure: Informed consent was obtained from the patient. She was placed supine on the CT scanner. Preliminary noncontrast CT images were obtained through liver. A skin site suitable for CT-guided aspiration of the right lobe cystic lesion was selected and marked. That area was prepped and draped in usual sterile fashion. Moderate sedation was provided with IV Versed and fentanyl. Using aseptic technique, local anesthesia, and CT guidance, a 21-gauge micropuncture needle was successfully introduced into the cystic liver lesion. The micropuncture needle was exchanged over a microguidewire for a micropuncture sheath, which was, internal, removed over a 0.035 inch guidewire. The percutaneous tract was dilated and a 6 [place] drainage catheter was easily introduced. A total of 100 cc of bloody, bilious fluid was easily aspirated, samples of which were submitted to microbiology and to cytology. The 6 [place] drainage catheter was then exchanged over a guidewire for a larger 8 [place] locking pigtail drain, to be left in place pending culture results. Completion CT images documented satisfactory position of the 8 [place] drainage catheter, which was then connected to bulb suction, and was secured at the skin exit site utilizing suture and sterile dressing. Patient tolerated the procedure well without apparent complication. Impression: Successful, uneventful CT-guided insertion of 8 [place] locking pigtail liver drainage catheter, as described. PQRS Compliance Statement: One or more of the following individualized dose reduction techniques was utilized for this procedure: 1. Automated exposure control. 2. Adjustment of MA and/or KV according to patient size. 3. Iterative reconstruction technique.
[2016-09-12] MEDS: ASPIRIN ENTERIC COATED 81 MG TABLET.DR. PO SCH (09:21)
[2016-09-12] MEDS: hydroCHLOROthiazide 25 MG TABLET PO SCH (09:21)
[2016-09-12] MEDS: HYDROcodone/APAP 5/325MG 1 TAB TABLET PO PRN (09:21)
[2016-09-12] MEDS: OMEGA-3 FATTY ACIDS/FISH OIL 1,000 MG CAPSULE. PO SCH (09:22)
[2016-09-12] MEDS: ATENOLOL 50 MG TABLET. PO SCH (09:22)
[2016-09-12] MEDS: DOCUSATE SODIUM 100 MG CAPSULE. PO SCH (09:22)
--- NOTE | 2016-09-12 10:11 | PDOC ---
Infectious Disease Note Subjective Subjective feeling better, walking, pain better ROS ROS GEN: Denies fevers, chills, sweats HEENT: Denies blurred vision, sore throat CV: Denies chest pain RESP: Denies shortness of air, cough GI: Denies n/v/d NEURO: Denies confusion, dizziness MSK: Denies weakness, joint pain/swelling Vital Sign Vital Signs Vital Signs Date Time Temp Pulse Resp B/P Pulse Ox O2 Delivery O2 Flow Rate FiO2 09/12/16 09:22 66 106/67 09/12/16 09:21 Room Air 09/12/16 07:30 97.9 18 94 97.9 09/11/16 09:42 2.0 Physical Exam PHYSICAL EXAM GENERAL: NAD, Alert HEENT: PERRL, OC/OP NECK: Supple, no JVD, no LN LUNGS: Clear HEART: S1S2, no gallop, no murmur ABD: Soft, NT, no organomegaly, no rebound EXT: No edema, no cyanosis MANAGER PEOPLE: Alert, oriented x 3, no focal neurologic deficit SKIN: No rash IV: ok Labs Lab Laboratory Tests Test 09/12/16 03:25 White Blood Count 10.5x10^3/uL (4.0-11.0) Red Blood Count 4.33x10^6/uL (3.50-5.40) Hemoglobin 13.1g/dL (12.0-15.5) Hematocrit 38.0% (36.0-47.0) Mean Corpuscular Volume 88fL (79-100) Mean Corpuscular Hemoglobin 30pg (25-35) Mean Corpuscular Hemoglobin Concent 35g/dL (31-37) Red Cell Distribution Width 13.2% (11.5-14.5) Platelet Count 189x10^3/uL (140-400) Neutrophils (%) (Auto) 49% (31-73) Lymphocytes (%) (Auto) 36% (24-48) Monocytes (%) (Auto) 10% (0-9) Eosinophils (%) (Auto) 4% (0-3) Basophils (%) (Auto) 1% (0-3) Neutrophils # (Auto) 5.2x10^3uL (1.8-7.7) Lymphocytes # (Auto) 3.8x10^3/uL (1.0-4.8) Monocytes # (Auto) 1.0x10^3/uL (0.0-1.1) Eosinophils # (Auto) 0.4x10^3/uL (0.0-0.7) Basophils # (Auto) 0.1x10^3/uL (0.0-0.2) Sodium Level 136mmol/L (136-145) Potassium Level 3.1mmol/L (3.5-5.1) Chloride Level 98mmol/L (98-107) Carbon Dioxide Level 31mmol/L (21-32) Anion Gap 7 (6-14) Blood Urea Nitrogen 15mg/dL (7-20) Creatinine 1.0mg/dL (0.6-1.0) Estimated GFR (Cockcroft-Gault) 53.6 Glucose Level 90mg/dL (70-99) Calcium Level 8.7mg/dL (8.5-10.1) Objective Assessment Hepatic complex cyst vs abscess Leukocytosis, improved Acute onset RUQ abdominal pain GERD HTN Plan Plan of Care Zosyn culture neg so far CAL RUST MD September 12, 2016 10:11
[2016-09-12 10:39] VITALS: BP 132/68
[2016-09-12] MEDS ORDERED: POTASSIUM CHLORIDE 20 MEQ TABLET.ER. PO ONE (11:00)
--- NOTE | 2016-09-12 13:01 | PDOC ---
Subjective: Subjective: Feeling better. Objective: Vital Signs: Vital Signs Date Time Temp Pulse Resp B/P Pulse Ox O2 Delivery O2 Flow Rate FiO2 09/12/16 11:06 Room Air 09/12/16 10:39 97.9 62 18 132/68 93 97.9 09/11/16 09:42 2.0 Labs: Laboratory Tests Test 09/12/16 03:25 White Blood Count 10.5x10^3/uL Red Blood Count 4.33x10^6/uL Hemoglobin 13.1g/dL Hematocrit 38.0% Mean Corpuscular Volume 88fL Mean Corpuscular Hemoglobin 30pg Mean Corpuscular Hemoglobin Concent 35g/dL Red Cell Distribution Width 13.2% Platelet Count 189x10^3/uL Neutrophils (%) (Auto) 49% Lymphocytes (%) (Auto) 36% Monocytes (%) (Auto) 10% Eosinophils (%) (Auto) 4% Basophils (%) (Auto) 1% Neutrophils # (Auto) 5.2x10^3uL Lymphocytes # (Auto) 3.8x10^3/uL Monocytes # (Auto) 1.0x10^3/uL Eosinophils # (Auto) 0.4x10^3/uL Basophils # (Auto) 0.1x10^3/uL Sodium Level 136mmol/L Potassium Level 3.1mmol/L Chloride Level 98mmol/L Carbon Dioxide Level 31mmol/L Anion Gap 7 Blood Urea Nitrogen 15mg/dL Creatinine 1.0mg/dL Estimated GFR (Cockcroft-Gault) 53.6 Glucose Level 90mg/dL Calcium Level 8.7mg/dL PE: GEN: NAD, sitting on edge of bed eating lunch LUNGS: CTAB HEART: RRR ABD: drain w/ less bloody output, no tenderness NEURO/PSYCH: A & O 3 A/P: Hepatic cyst -s/p drain, on atbx per ID, cx neg so far -RUQ pain improved -- ?source - diverticulitis, colitis, malignancy ARELY BROWN September 12, 2016 13:01
--- NOTE | 2016-09-12 13:50 | PDOC ---
PROGRESS NOTES Chief Complaint Chief Complaint CC: ABDOMINAL PAIN A/P 1. Hepatic complex cyst versus abscess: IR consulted, aspiration on Sunday. continue current abx, RIB X-ray no fractures, ? lytic lesion on spine, need out pt follow up. GI/ID following. 2. Leukocytosis: better. 3. Acute onset right upper quadrant abdominal pain: due to above, see orders for pain control. 4. Gastroesophageal reflux disease. 5. Hypertension: stable 6.hypokalemia plan: fu with gi, ID on zosyn, cx neg so far post hepatic drainage on 09/11 fu with cx, path replete K History of Present Illness History of Present Illness post hepatic drainage on 09/11 Vitals Vitals Vital Signs Date Time Temp Pulse Resp B/P Pulse Ox O2 Delivery O2 Flow Rate FiO2 09/12/16 11:06 Room Air 09/12/16 10:39 97.9 62 18 132/68 93 97.9 09/11/16 09:42 2.0 Physical Exam General: Alert, Oriented X3 Heart: Normal S1, Normal S2 Lungs: Clear, Wheezing Abdomen: Normal bowel sounds, Other (tender RUQ, 1 hepatic EMILIANA with dark bloody drainage) Labs LABS Laboratory Tests Test 09/12/16 03:25 White Blood Count 10.5x10^3/uL (4.0-11.0) Red Blood Count 4.33x10^6/uL (3.50-5.40) Hemoglobin 13.1g/dL (12.0-15.5) Hematocrit 38.0% (36.0-47.0) Mean Corpuscular Volume 88fL (79-100) Mean Corpuscular Hemoglobin 30pg (25-35) Mean Corpuscular Hemoglobin Concent 35g/dL (31-37) Red Cell Distribution Width 13.2% (11.5-14.5) Platelet Count 189x10^3/uL (140-400) Neutrophils (%) (Auto) 49% (31-73) Lymphocytes (%) (Auto) 36% (24-48) Monocytes (%) (Auto) 10% (0-9) Eosinophils (%) (Auto) 4% (0-3) Basophils (%) (Auto) 1% (0-3) Neutrophils # (Auto) 5.2x10^3uL (1.8-7.7) Lymphocytes # (Auto) 3.8x10^3/uL (1.0-4.8) Monocytes # (Auto) 1.0x10^3/uL (0.0-1.1) Eosinophils # (Auto) 0.4x10^3/uL (0.0-0.7) Basophils # (Auto) 0.1x10^3/uL (0.0-0.2) Sodium Level 136mmol/L (136-145) Potassium Level 3.1mmol/L (3.5-5.1) Chloride Level 98mmol/L (98-107) Carbon Dioxide Level 31mmol/L (21-32) Anion Gap 7 (6-14) Blood Urea Nitrogen 15mg/dL (7-20) Creatinine 1.0mg/dL (0.6-1.0) Estimated GFR (Cockcroft-Gault) 53.6 Glucose Level 90mg/dL (70-99) Calcium Level 8.7mg/dL (8.5-10.1) Review of Systems Review of Systems No fever, chills, sob or chest pain Assessment and Plan Assessmemt and Plan Problems Medical Problems: (1) Abdominal pain Status: Acute (2) Liver cyst Status: Acute Problems: Comment Review of Relevant I have reviewed the following items adali (where applicable) has been applied. Labs Laboratory Tests Test 09/11/16 09:15 09/12/16 03:25 Body Fluid Source Ascites Body Fluid Color Rosana Body Fluid Clarity Turbid Body Fluid Nucleated Cells 13850/cmm Body Fluid Mononuclear WBCs (%) 5% Body Fluid Polymorphonuclear Cells 94% Body Fluid Total RBCs Counted 404896/cmm Body Fluid Other Cells (%) 1% White Blood Count 10.5x10^3/uL (4.0-11.0) Red Blood Count 4.33x10^6/uL (3.50-5.40) Hemoglobin 13.1g/dL (12.0-15.5) Hematocrit 38.0% (36.0-47.0) Mean Corpuscular Volume 88fL (79-100) Mean Corpuscular Hemoglobin 30pg (25-35) Mean Corpuscular Hemoglobin Concent 35g/dL (31-37) Red Cell Distribution Width 13.2% (11.5-14.5) Platelet Count 189x10^3/uL (140-400) Neutrophils (%) (Auto) 49% (31-73) Lymphocytes (%) (Auto) 36% (24-48) Monocytes (%) (Auto) 10% (0-9) Eosinophils (%) (Auto) 4% (0-3) Basophils (%) (Auto) 1% (0-3) Neutrophils # (Auto) 5.2x10^3uL (1.8-7.7) Lymphocytes # (Auto) 3.8x10^3/uL (1.0-4.8) Monocytes # (Auto) 1.0x10^3/uL (0.0-1.1) Eosinophils # (Auto) 0.4x10^3/uL (0.0-0.7) Basophils # (Auto) 0.1x10^3/uL (0.0-0.2) Sodium Level 136mmol/L (136-145) Potassium Level 3.1mmol/L (3.5-5.1) Chloride Level 98mmol/L (98-107) Carbon Dioxide Level 31mmol/L (21-32) Anion Gap 7 (6-14) Blood Urea Nitrogen 15mg/dL (7-20) Creatinine 1.0mg/dL (0.6-1.0) Estimated GFR (Cockcroft-Gault) 53.6 Glucose Level 90mg/dL (70-99) Calcium Level 8.7mg/dL (8.5-10.1) Laboratory Tests Test 09/12/16 03:25 White Blood Count 10.5x10^3/uL (4.0-11.0) Red Blood Count 4.33x10^6/uL (3.50-5.40) Hemoglobin 13.1g/dL (12.0-15.5) Hematocrit 38.0% (36.0-47.0) Mean Corpuscular Volume 88fL (79-100) Mean Corpuscular Hemoglobin 30pg (25-35) Mean Corpuscular Hemoglobin Concent 35g/dL (31-37) Red Cell Distribution Width 13.2% (11.5-14.5) Platelet Count 189x10^3/uL (140-400) Neutrophils (%) (Auto) 49% (31-73) Lymphocytes (%) (Auto) 36% (24-48) Monocytes (%) (Auto) 10% (0-9) Eosinophils (%) (Auto) 4% (0-3) Basophils (%) (Auto) 1% (0-3) Neutrophils # (Auto) 5.2x10^3uL (1.8-7.7) Lymphocytes # (Auto) 3.8x10^3/uL (1.0-4.8) Monocytes # (Auto) 1.0x10^3/uL (0.0-1.1) Eosinophils # (Auto) 0.4x10^3/uL (0.0-0.7) Basophils # (Auto) 0.1x10^3/uL (0.0-0.2) Sodium Level 136mmol/L (136-145) Potassium Level 3.1mmol/L (3.5-5.1) Chloride Level 98mmol/L (98-107) Carbon Dioxide Level 31mmol/L (21-32) Anion Gap 7 (6-14) Blood Urea Nitrogen 15mg/dL (7-20) Creatinine 1.0mg/dL (0.6-1.0) Estimated GFR (Cockcroft-Gault) 53.6 Glucose Level 90mg/dL (70-99) Calcium Level 8.7mg/dL (8.5-10.1) Microbiology 09/11/16 Gram Stain - Final, Complete Medications Current Medications Ketorolac Tromethamine (Toradol) 10 mg 1X ONCE IV Last administered on 15:13; Start 09/08/16 at 14:45; Stop 09/08/16 at 14:46; Status DC Piperacillin Sod/ Tazobactam Sod 1 each 1 each PRN DAILY PRN MC SEE COMMENTS; Start 09/08/16 at 16:45 Piperacillin Sod/ Tazobactam Sod/ Sodium Chloride (Zosyn/Iv Sodium Chloride 0.9 % 50ml) 50 ml @ 100 mls/hr 1X ONCE IV Last administered on 09/08/16 17:01; Start 09/08/16 at 16:45; Stop 09/08/16 at 17:14; Status DC Iohexol (Omnipaque 300 Mg/ml) 75 ml 1X ONCE IV Last administered on 09/08/16 17:00; Start 09/08/16 at 17:00; Stop 09/08/16 at 17:01; Status DC Info (Do NOT chart on this entry -- for MONITORING) 1 each PRN DAILY PRN MC SEE COMMENTS; Start 09/08/16 at 17:00; Stop 09/10/16 at 16:59; Status DC Ondansetron HCl (Zofran) 4 mg PRN Q8HRS PRN IV NAUSEA/VOMITING Last administered on 09/08/16 20:11; Start 09/08/16 at 17:15; Stop 09/09/16 at 17:14 ; Status DC Fentanyl Citrate (Fentanyl 2ml Vial) 50 mcg PRN Q2HR PRN IV PAIN Last administered on 09/08/16 19:56; Start 09/08/16 at 17:15; Stop 09/09/16 at 10:31 ; Status DC Acetaminophen 650 mg 650 mg PRN Q4HRS PRN PO FEVER; Start 09/08/16 at 17:15; Stop 09/09/16 at 17:14; Status DC Piperacillin Sod/ Tazobactam Sod/ Sodium Chloride (Zosyn/Iv Sodium Chloride 0.9 % 50ml) 50 ml @ 100 mls/hr Q6HRS IV Last administered on 09/12/16 11:50; Start 09/09/16 at 00:00 Aspirin (Ecotrin) 81 mg DAILY PO Last administered on 09/12/16 09:21; Start at 09:00 Atenolol (Tenormin) 50 mg DAILY PO Last administered on 09/12/16 09:22; Start 09/08/16 at 22:00 Hydrochlorothiazide (Hydrodiuril) 25 mg DAILY PO Last administered on 09/12/16 09:21; Start 09/08/16 at 22:00 Levothyroxine Sodium (Synthroid) 50 mcg DAILY07 PO Last administered on 05:37; Start 09/09/16 at 07:00 Simvastatin (Zocor) 20 mg QHS PO Last administered on 09/11/16 21:00; Start at 22:00 Pantoprazole Sodium (Protonix) 40 mg DAILYAC PO Last administered on 09/12/16 05:37; Start 09/09/16 at 07:30 Fish Oil (Fish Oil) 1,000 mg DAILY PO Last administered on 09/12/16 09:22; Start 09/09/16 at 09:00 Acetaminophen/ Hydrocodone Bitart (Lortab 5/325) 1 tab PRN Q4HRS PRN PO MODERATE PAIN Last administered on 09/12/16 09:21; Start 09/08/16 at 21:45 Magnesium Hydroxide (Milk Of Magnesia) 2,400 mg PRN DAILY PRN PO CONSTIPATION Last administered on 09/11/16 12:18; Start 09/10/16 at 11:00 Docusate Sodium (Colace) 100 mg DAILY PO Last administered on 09/12/16 09:22; Start 09/10/16 at 11:00 Lidocaine/Sodium Bicarbonate (Buffered Lidocaine 1%) 20 ml STK-MED ONCE IJ ; Start 09/11/16 at 08:47; Stop 09/11/16 at 08:48; Status DC Midazolam HCl (Versed) 5 mg STK-MED ONCE .ROUTE ; Start 09/11/16 at 08:56; Stop 09/11/16 at 08:57; Status DC Fentanyl Citrate (Fentanyl 5ml Vial) 250 mcg STK-MED ONCE .ROUTE ; Start at 08:56; Stop 09/11/16 at 08:57; Status DC Lidocaine/Sodium Bicarbonate (Buffered Lidocaine 1%) 20 ml 1X ONCE IJ Last administered on 09/11/16 09:41; Start 09/11/16 at 09:45; Stop 09/11/16 at 09:46; Status DC Midazolam HCl (Versed) 3.5 mg 1X ONCE IV Last administered on 09/11/16 09:41; Start 09/11/16 at 09:45; Stop 09/11/16 at 09:46; Status DC Fentanyl Citrate (Fentanyl 5ml Vial) 150 mcg 1X ONCE IV Last administered on 09:42; Start 09/11/16 at 09:45; Stop 09/11/16 at 09:46; Status DC Acetaminophen (Tylenol) 650 mg PRN Q6HRS PRN PO FEVER; Start 09/11/16 at 14:00 Ondansetron HCl (Zofran) 4 mg PRN Q6HRS PRN IV NAUSEA/VOMITING; Start 09/11/16 at 14:00 Potassium Chloride (Klor-Con) 40 meq 1X ONCE PO Last administered on 09/12/16t 11:08; Start 09/12/16 at 11:00; Stop 09/12/16 at 11:01; Status DC Active Scripts Active Reported Fish Oil Concentrate Softgel (Ripon-3 Fatty Acids/Fish Oil) 1 Each Capsule 1 Each PO Levothyroxine Sodium 50 Mcg Tablet 1 Tab PO DAILY Aspir 81 (Aspirin) 81 Mg Tablet. 1 Tab PO DAILY Omeprazole 20 Mg Capsule. 1 Cap PO DAILY Hydrochlorothiazide Tablet (Hydrochlorothiazide) 25 Mg Tablet 1 Tab PO DAILY Atenolol 50 Mg Tablet 1 Tab PO DAILY Simvastatin 20 Mg Tablet 1 Tab PO QHS Vitals/I & O Vital Sign - Last 24 Hours 09/11/16 09/11/16 09/11/16 09/11/16 14:00 15:00 19:00 19:53 Temp 97.8 99.0 97.8 99.0 Pulse 69 66 71 Resp 20 B/P 151/64 149/65 177/69 Pulse Ox 96 98 95 O2 Delivery Room Air Room Air Room Air Room Air 09/11/16 09/11/16 09/12/16 09/12/16 23:00 23:00 00:00 03:00 Temp 99.0 98.8 99.0 98.8 Pulse 68 61 Resp 20 20 20 20 B/P 154/67 148/55 Pulse Ox 95 94 95 92 O2 Delivery BiPAP/CPAP Room Air BiPAP/CPAP 09/12/16 09/12/16 09/12/16 09/12/16 07:30 08:00 09:21 09:22 Temp 97.9 97.9 Pulse 66 66 Resp 18 B/P 106/67 106/67 Pulse Ox 94 O2 Delivery BiPAP/CPAP Room Air Room Air 09/12/16 09/12/16 10:39 11:06 Temp 97.9 97.9 Pulse 62 Resp 18 B/P 132/68 Pulse Ox 93 O2 Delivery Room Air Room Air Intake and Output 09/11/16 09/11/16 09/12/16 15:00 23:00 07:00 Intake Total 300 ml 950 ml 0 ml Output Total 205 ml Balance 95 ml 950 ml 0 ml CAROLE MURILLO MD September 12, 2016 13:50
[2016-09-12 14:30] VITALS: BP 104/56
[2016-09-12 19:00] VITALS: BP 159/73
[2016-09-12] MEDS: SIMVASTATIN 20 MG TABLET PO SCH (20:44)
[2016-09-12 23:00] VITALS: BP 153/66
[2016-09-13] MEDS: PIPERACILLIN/TAZOBACTAM 3.375 GM in IV NORMAL SALINE 50ML 50 ML IV SCH ×2 (00:08→05:16)
[2016-09-13] MEDS: MAGNESIUM HYDROXIDE 2,400 MG/30 ML ORAL.SUSP. PO PRN (00:21)
[2016-09-13] MEDS: HYDROcodone/APAP 5/325MG 1 TAB TABLET PO PRN ×3 (01:12→17:25)
[2016-09-13 03:00] VITALS: BP 140/59
[2016-09-13] MEDS: LEVOTHYROXINE 50 MCG TABLET PO SCH (05:16)
[2016-09-13 07:00] VITALS: BP 149/78
[2016-09-13] MEDS: OMEGA-3 FATTY ACIDS/FISH OIL 1,000 MG CAPSULE. PO SCH (08:06)
[2016-09-13] MEDS: DOCUSATE SODIUM 100 MG CAPSULE. PO SCH (08:06)
[2016-09-13] MEDS: ASPIRIN ENTERIC COATED 81 MG TABLET.DR. PO SCH (08:06)
[2016-09-13] MEDS: hydroCHLOROthiazide 25 MG TABLET PO SCH (08:07)
[2016-09-13] MEDS: ATENOLOL 50 MG TABLET. PO SCH (08:07)
[2016-09-13] MEDS: PANTOPRAZOLE 40 MG TABLET.DR. PO SCH (09:36)
--- NOTE | 2016-09-13 10:24 | PDOC ---
Infectious Disease Note Subjective Subjective feeling better, walking, pain better ROS ROS GEN: Denies fevers, chills, sweats HEENT: Denies blurred vision, sore throat CV: Denies chest pain RESP: Denies shortness of air, cough GI: Denies n/v/d NEURO: Denies confusion, dizziness MSK: Denies weakness, joint pain/swelling Vital Sign Vital Signs Vital Signs Date Time Temp Pulse Resp B/P Pulse Ox O2 Delivery O2 Flow Rate FiO2 09/13/16 08:07 62 149/78 09/13/16 07:00 97.7 18 93 Room Air 97.7 Physical Exam PHYSICAL EXAM GENERAL: NAD, Alert HEENT: PERRL, OC/OP NECK: Supple, no JVD, no LN LUNGS: Clear HEART: S1S2, no gallop, no murmur ABD: Soft, NT, no organomegaly, no rebound EXT: No edema, no cyanosis CONSERVATION COORDINATOR: Alert, oriented x 3, no focal neurologic deficit SKIN: No rash IV: ok Labs Micro culture neg Objective Assessment Hepatic complex cyst likely, no infection Leukocytosis, improved Acute onset RUQ abdominal pain GERD HTN Plan Plan of Care d/c Zosyn culture neg so far d/w CAL Waller MD September 13, 2016 10:24
[2016-09-13 11:00] VITALS: BP 184/78
[2016-09-13] MEDS ORDERED: hydrALAZINE 20 MG/ML VIAL. IVP PRN (11:45)
--- NOTE | 2016-09-13 12:40 | PDOC ---
PROGRESS NOTES Chief Complaint Chief Complaint CC: ABDOMINAL PAIN A/P 1. Hepatic complex cyst versus abscess: IR consulted, aspiration on Sunday. continue current abx, RIB X-ray no fractures, ? lytic lesion on spine, need out pt follow up. GI/ID following. 2. Leukocytosis: better. 3. Acute onset right upper quadrant abdominal pain: due to above, see orders for pain control. 4. Gastroesophageal reflux disease. 5. Hypertension: stable 6.hypokalemia plan: fu with gi, ID dc zosyn 09/13, cx neg so far post hepatic drainage on 09/11 fu with cx neg so far, path pending replete K talked to gi, and ID, asked nurse to page IR to see if consider remove the drainage soon hope dc in 1-2ds History of Present Illness History of Present Illness post hepatic drainage on 09/11 Vitals Vitals Vital Signs Date Time Temp Pulse Resp B/P Pulse Ox O2 Delivery O2 Flow Rate FiO2 09/13/16 11:59 67 184/78 09/13/16 11:00 98.1 18 95 Room Air 98.1 Physical Exam General: Alert, Oriented X3 Heart: Normal S1, Normal S2 Lungs: Clear, Wheezing Abdomen: Normal bowel sounds, Other (tender RUQ, 1 hepatic EMILIANA with dark bloody drainage) Review of Systems Review of Systems no fever, chills, sob or chest pain Assessment and Plan Assessmemt and Plan Problems Medical Problems: (1) Abdominal pain Status: Acute (2) Liver cyst Status: Acute Problems: Comment Review of Relevant I have reviewed the following items adali (where applicable) has been applied. Labs Laboratory Tests Test 09/12/16 03:25 White Blood Count 10.5x10^3/uL (4.0-11.0) Red Blood Count 4.33x10^6/uL (3.50-5.40) Hemoglobin 13.1g/dL (12.0-15.5) Hematocrit 38.0% (36.0-47.0) Mean Corpuscular Volume 88fL (79-100) Mean Corpuscular Hemoglobin 30pg (25-35) Mean Corpuscular Hemoglobin Concent 35g/dL (31-37) Red Cell Distribution Width 13.2% (11.5-14.5) Platelet Count 189x10^3/uL (140-400) Neutrophils (%) (Auto) 49% (31-73) Lymphocytes (%) (Auto) 36% (24-48) Monocytes (%) (Auto) 10% (0-9) Eosinophils (%) (Auto) 4% (0-3) Basophils (%) (Auto) 1% (0-3) Neutrophils # (Auto) 5.2x10^3uL (1.8-7.7) Lymphocytes # (Auto) 3.8x10^3/uL (1.0-4.8) Monocytes # (Auto) 1.0x10^3/uL (0.0-1.1) Eosinophils # (Auto) 0.4x10^3/uL (0.0-0.7) Basophils # (Auto) 0.1x10^3/uL (0.0-0.2) Sodium Level 136mmol/L (136-145) Potassium Level 3.1mmol/L (3.5-5.1) Chloride Level 98mmol/L (98-107) Carbon Dioxide Level 31mmol/L (21-32) Anion Gap 7 (6-14) Blood Urea Nitrogen 15mg/dL (7-20) Creatinine 1.0mg/dL (0.6-1.0) Estimated GFR (Cockcroft-Gault) 53.6 Glucose Level 90mg/dL (70-99) Calcium Level 8.7mg/dL (8.5-10.1) Microbiology 09/11/16 Gram Stain - Final, Complete Medications Current Medications Ketorolac Tromethamine (Toradol) 10 mg 1X ONCE IV Last administered on 15:13; Start 09/08/16 at 14:45; Stop 09/08/16 at 14:46; Status DC Piperacillin Sod/ Tazobactam Sod 1 each 1 each PRN DAILY PRN MC SEE COMMENTS; Start 09/08/16 at 16:45; Stop 09/13/16 at 10:25; Status DC Piperacillin Sod/ Tazobactam Sod/ Sodium Chloride (Zosyn/Iv Sodium Chloride 0.9 % 50ml) 50 ml @ 100 mls/hr 1X ONCE IV Last administered on 09/08/16 17:01; Start 09/08/16 at 16:45; Stop 09/08/16 at 17:14; Status DC Iohexol (Omnipaque 300 Mg/ml) 75 ml 1X ONCE IV Last administered on 09/08/16 17:00; Start 09/08/16 at 17:00; Stop 09/08/16 at 17:01; Status DC Info (Do NOT chart on this entry -- for MONITORING) 1 each PRN DAILY PRN MC SEE COMMENTS; Start 09/08/16 at 17:00; Stop 09/10/16 at 16:59; Status DC Ondansetron HCl (Zofran) 4 mg PRN Q8HRS PRN IV NAUSEA/VOMITING Last administered on 09/08/16 20:11; Start 09/08/16 at 17:15; Stop 09/09/16 at 17:14 ; Status DC Fentanyl Citrate (Fentanyl 2ml Vial) 50 mcg PRN Q2HR PRN IV PAIN Last administered on 09/08/16 19:56; Start 09/08/16 at 17:15; Stop 09/09/16 at 10:31 ; Status DC Acetaminophen 650 mg 650 mg PRN Q4HRS PRN PO FEVER; Start 09/08/16 at 17:15; Stop 09/09/16 at 17:14; Status DC Piperacillin Sod/ Tazobactam Sod/ Sodium Chloride (Zosyn/Iv Sodium Chloride 0.9 % 50ml) 50 ml @ 100 mls/hr Q6HRS IV Last administered on 09/13/16 05:16; Start 09/09/16 at 00:00; Stop 09/13/16 at 10:25; Status DC Aspirin (Ecotrin) 81 mg DAILY PO Last administered on 09/13/16 08:06; Start at 09:00 Atenolol (Tenormin) 50 mg DAILY PO Last administered on 09/13/16 08:07; Start 09/08/16 at 22:00 Hydrochlorothiazide (Hydrodiuril) 25 mg DAILY PO Last administered on 09/13/16 08:07; Start 09/08/16 at 22:00 Levothyroxine Sodium (Synthroid) 50 mcg DAILY07 PO Last administered on 05:16; Start 09/09/16 at 07:00 Simvastatin (Zocor) 20 mg QHS PO Last administered on 09/12/16 20:44; Start at 22:00 Pantoprazole Sodium (Protonix) 40 mg DAILYAC PO Last administered on 09/13/16 09:36; Start 09/09/16 at 07:30 Fish Oil (Fish Oil) 1,000 mg DAILY PO Last administered on 09/13/16 08:06; Start 09/09/16 at 09:00 Acetaminophen/ Hydrocodone Bitart (Lortab 5/325) 1 tab PRN Q4HRS PRN PO MODERATE PAIN Last administered on 09/13/16 01:12; Start 09/08/16 at 21:45 Magnesium Hydroxide (Milk Of Magnesia) 2,400 mg PRN DAILY PRN PO CONSTIPATION Last administered on 09/13/16 00:21; Start 09/10/16 at 11:00 Docusate Sodium (Colace) 100 mg DAILY PO Last administered on 09/13/16 08:06; Start 09/10/16 at 11:00 Lidocaine/Sodium Bicarbonate (Buffered Lidocaine 1%) 20 ml STK-MED ONCE IJ ; Start 09/11/16 at 08:47; Stop 09/11/16 at 08:48; Status DC Midazolam HCl (Versed) 5 mg STK-MED ONCE .ROUTE ; Start 09/11/16 at 08:56; Stop 09/11/16 at 08:57; Status DC Fentanyl Citrate (Fentanyl 5ml Vial) 250 mcg STK-MED ONCE .ROUTE ; Start at 08:56; Stop 09/11/16 at 08:57; Status DC Lidocaine/Sodium Bicarbonate (Buffered Lidocaine 1%) 20 ml 1X ONCE IJ Last administered on 09/11/16 09:41; Start 09/11/16 at 09:45; Stop 09/11/16 at 09:46; Status DC Midazolam HCl (Versed) 3.5 mg 1X ONCE IV Last administered on 09/11/16 09:41; Start 09/11/16 at 09:45; Stop 09/11/16 at 09:46; Status DC Fentanyl Citrate (Fentanyl 5ml Vial) 150 mcg 1X ONCE IV Last administered on 09:42; Start 09/11/16 at 09:45; Stop 09/11/16 at 09:46; Status DC Acetaminophen (Tylenol) 650 mg PRN Q6HRS PRN PO FEVER; Start 09/11/16 at 14:00 Ondansetron HCl (Zofran) 4 mg PRN Q6HRS PRN IV NAUSEA/VOMITING; Start 09/11/16 at 14:00 Potassium Chloride (Klor-Con) 40 meq 1X ONCE PO Last administered on 09/12/16 11:08; Start 09/12/16 at 11:00; Stop 09/12/16 at 11:01; Status DC Hydralazine HCl (Apresoline) 10 mg PRN Q4HRS PRN IVP ELEVATED BP, SEE COMMENTS Last administered on 09/13/16 11:59; Start 09/13/16 at 11:45 Active Scripts Active Reported Fish Oil Concentrate Softgel ([place]-3 Fatty Acids/Fish Oil) 1 Each Capsule 1 Each PO Levothyroxine Sodium 50 Mcg Tablet 1 Tab PO DAILY Aspir 81 (Aspirin) 81 Mg Tablet. 1 Tab PO DAILY Omeprazole 20 Mg Capsule. 1 Cap PO DAILY Hydrochlorothiazide Tablet (Hydrochlorothiazide) 25 Mg Tablet 1 Tab PO DAILY Atenolol 50 Mg Tablet 1 Tab PO DAILY Simvastatin 20 Mg Tablet 1 Tab PO QHS Vitals/I & O Vital Sign - Last 24 Hours 09/12/16 09/12/16 09/12/16 09/12/16 14:30 19:00 20:00 23:00 Temp 97.5 97.9 98.1 97.5 97.9 98.1 Pulse 66 64 65 Resp 18 18 18 B/P 104/56 159/73 153/66 Pulse Ox 95 94 93 O2 Delivery Room Air Room Air Room Air Room Air 09/13/16 09/13/16 09/13/16 09/13/16 01:12 02:12 03:00 07:00 Temp 98.1 97.7 98.1 97.7 Pulse 69 62 Resp 18 18 B/P 140/59 149/78 Pulse Ox 93 93 92 93 O2 Delivery Room Air Room Air Room Air Room Air 09/13/16 09/13/16 09/13/16 08:07 11:00 11:59 Temp 98.1 98.1 Pulse 62 67 67 Resp 18 B/P 149/78 184/78 184/78 Pulse Ox 95 O2 Delivery Room Air Intake and Output 09/12/16 09/12/16 09/13/16 15:00 23:00 07:00 Intake Total 540 ml 230 ml 340 ml Balance 540 ml 230 ml 340 ml CAROLE MURILLO MD September 13, 2016 12:40
--- NOTE | 2016-09-13 13:21 | PDOC ---
Subjective: Subjective: Feeling okay - drainage seemed to pecan picker again after drain emptied. Objective: Objective: Per RN - drainage slowing. D/w Dr. Mcdonough - possible DC tomorrow, ?remove drain. Vital Signs: Vital Signs Date Time Temp Pulse Resp B/P Pulse Ox O2 Delivery O2 Flow Rate FiO2 09/13/16 11:59 67 184/78 09/13/16 11:00 98.1 18 95 Room Air 98.1 PE: GEN: NAD LUNGS: CTAB HEART: RRR ABD: drain w/ bloody fluid NEURO/PSYCH: A & O 3 A/P: Hepatic cyst -s/p drain, prelim cx neg, atbx stopped RUQ pain - resolved -- Drain per Dr. Eugene. Etiology unclear. Recommend 'scopes - could be performed as an outpt (she's from [place]). ARELY BROWN September 13, 2016 13:21
[2016-09-13 15:00] VITALS: BP 153/69
[2016-09-13 19:34] VITALS: BP 170/79
[2016-09-13] MEDS: SIMVASTATIN 20 MG TABLET PO SCH (20:32)
[2016-09-13 23:08] VITALS: BP 145/67
[2016-09-14 03:10] VITALS: BP 154/77
[2016-09-14 07:00] VITALS: BP 161/78
[2016-09-14] MEDS: LEVOTHYROXINE 50 MCG TABLET PO SCH (07:00)
[2016-09-14 07:53] LABS: BASO # 0.1 x10^3/uL (0.0-0.2); BASO % 1 % (0-3); EOS % 6 % (0-3); HEMATOCRIT 38.3 % (36.0-47.0); HEMOGLOBIN 13.2 g/dL (12.0-15.5); LYMPH # 3.4 x10^3/uL (1.0-4.8); LYMPH % 38 % (24-48); MEAN CORPUSCULAR HEMOGLOBIN 30 pg (25-35); MEAN CORPUSCULAR HGB CONC 35 g/dL (31-37); MEAN CORPUSCULAR VOLUME 88 fL (79-100); MONO % 10 % (0-9); NEUT % 46 % (31-73); PLATELET COUNT 224 x10^3/uL (140-400); RED BLOOD COUNT 4.35 x10^6/uL (3.50-5.40); RED CELL DISTRIBUTION WIDTH 13.1 % (11.5-14.5); WHITE BLOOD COUNT 9.1 x10^3/uL (4.0-11.0)
[2016-09-14] MEDS: OMEGA-3 FATTY ACIDS/FISH OIL 1,000 MG CAPSULE. PO SCH (08:32)
[2016-09-14] MEDS: ASPIRIN ENTERIC COATED 81 MG TABLET.DR. PO SCH (08:32)
[2016-09-14] MEDS: ACETAMINOPHEN 325 MG TABLET. PO PRN ×2 (08:32→17:42)
[2016-09-14] MEDS: DOCUSATE SODIUM 100 MG CAPSULE. PO SCH (08:32)
[2016-09-14] MEDS: hydroCHLOROthiazide 25 MG TABLET PO SCH (08:32)
[2016-09-14] MEDS: PANTOPRAZOLE 40 MG TABLET.DR. PO SCH (08:32)
[2016-09-14] MEDS: ATENOLOL 50 MG TABLET. PO SCH (08:33)
--- NOTE | 2016-09-14 10:00 | PDOC ---
Infectious Disease Note Subjective Subjective feeling better, walking, pain better ROS ROS GEN: Denies fevers, chills, sweats HEENT: Denies blurred vision, sore throat CV: Denies chest pain RESP: Denies shortness of air, cough GI: Denies n/v/d NEURO: Denies confusion, dizziness MSK: Denies weakness, joint pain/swelling Vital Sign Vital Signs Vital Signs Date Time Temp Pulse Resp B/P (MAP) Pulse Ox O2 Delivery O2 Flow Rate FiO2 09/14/16 08:33 94 161/78 09/14/16 07:00 97.8 16 95 Room Air 97.8 Physical Exam PHYSICAL EXAM GENERAL: NAD, Alert HEENT: PERRL, OC/OP NECK: Supple, no JVD, no LN LUNGS: Clear HEART: S1S2, no gallop, no murmur ABD: Soft, NT, no organomegaly, no rebound EXT: No edema, no cyanosis SHIPMASTER: Alert, oriented x 3, no focal neurologic deficit SKIN: No rash IV: ok Labs Lab Laboratory Tests Test 09/14/16 04:50 White Blood Count 9.1 x10^3/uL (4.0-11.0) Red Blood Count 4.35 x10^6/uL (3.50-5.40) Hemoglobin 13.2 g/dL (12.0-15.5) Hematocrit 38.3 % (36.0-47.0) Mean Corpuscular Volume 88 fL (79-100) Mean Corpuscular Hemoglobin 30 pg (25-35) Mean Corpuscular Hemoglobin Concent 35 g/dL (31-37) Red Cell Distribution Width 13.1 % (11.5-14.5) Platelet Count 224 x10^3/uL (140-400) Neutrophils (%) (Auto) 46 % (31-73) Lymphocytes (%) (Auto) 38 % (24-48) Monocytes (%) (Auto) 10 % (0-9) Eosinophils (%) (Auto) 6 % (0-3) Basophils (%) (Auto) 1 % (0-3) Neutrophils # (Auto) 4.1 x10^3uL (1.8-7.7) Lymphocytes # (Auto) 3.4 x10^3/uL (1.0-4.8) Monocytes # (Auto) 0.9 x10^3/uL (0.0-1.1) Eosinophils # (Auto) 0.5 x10^3/uL (0.0-0.7) Basophils # (Auto) 0.1 x10^3/uL (0.0-0.2) Micro culture neg Objective Assessment Hepatic complex cyst likely, no infection Leukocytosis, improved Acute onset RUQ abdominal pain GERD HTN Plan Plan of Care off antibiotics culture neg so far d/w dr Mcdonough d/c ok from ID stand point CAL RUST MD September 14, 2016 10:00
[2016-09-14 11:00] VITALS: BP 148/74
--- NOTE | 2016-09-14 11:12 | PDOC ---
Subjective: Subjective: Feeling better, no complaints. Has a lot of questions about drain removal and follow-up. Objective: Objective: D/w Dr. Pat Scott. Per RN - 75cc out of drain yesterday, continue monitoring today, reassess tomorrow for ?removal. Vital Signs: Vital Signs Date Time Temp Pulse Resp B/P (MAP) Pulse Ox O2 Delivery O2 Flow Rate FiO2 09/14/16 08:33 94 161/78 09/14/16 07:00 97.8 16 95 Room Air 97.8 Labs: Laboratory Tests Test 09/14/16 04:50 White Blood Count 9.1 x10^3/uL Red Blood Count 4.35 x10^6/uL Hemoglobin 13.2 g/dL Hematocrit 38.3 % Mean Corpuscular Volume 88 fL Mean Corpuscular Hemoglobin 30 pg Mean Corpuscular Hemoglobin Concent 35 g/dL Red Cell Distribution Width 13.1 % Platelet Count 224 x10^3/uL Neutrophils (%) (Auto) 46 % Lymphocytes (%) (Auto) 38 % Monocytes (%) (Auto) 10 % Eosinophils (%) (Auto) 6 % Basophils (%) (Auto) 1 % Neutrophils # (Auto) 4.1 x10^3uL Lymphocytes # (Auto) 3.4 x10^3/uL Monocytes # (Auto) 0.9 x10^3/uL Eosinophils # (Auto) 0.5 x10^3/uL Basophils # (Auto) 0.1 x10^3/uL PE: GEN: NAD, standing in shower w/ towel NEURO/PSYCH: A & O 3 A/P: Hepatic cyst -s/p drain (slowing), prelim cx neg, off atbx -- Await plans for drain removal, DC. ARELY BROWN September 14, 2016 11:12
--- NOTE | 2016-09-14 12:00 | PDOC ---
PROGRESS NOTES Chief Complaint Chief Complaint CC: ABDOMINAL PAIN A/P 1. Hepatic complex cyst versus abscess: IR consulted, aspiration on Sunday. continue current abx, RIB X-ray no fractures, ? lytic lesion on spine, need out pt follow up. GI/ID following. 2. Leukocytosis: better. 3. Acute onset right upper quadrant abdominal pain: due to above, see orders for pain control. 4. Gastroesophageal reflux disease. 5. Hypertension: stable 6.hypokalemia plan: fu with gi, ID dc zosyn 09/13, cx neg so far post hepatic drainage on 09/11 fu with cx neg so far, path pending replete K talked to gi, and ID, asked nurse to call IR twice today, will see if able to dc the drain tomorrow if much less drainage, otherwise will dc with the EMILIANA pt lives in [place], visiting a friend here, plan to go home in 1-2 weeks. may dc tmr with the EMILIANA, then call dr. Hurd office next week for outpt fu. History of Present Illness History of Present Illness post hepatic drainage on 09/11 75cc drain on 09/13 Vitals Vitals Vital Signs Date Time Temp Pulse Resp B/P (MAP) Pulse Ox O2 Delivery O2 Flow Rate FiO2 09/14/16 11:00 98.1 68 18 148/74 (98) 92 Room Air 98.1 Physical Exam General: Alert, Oriented X3 Heart: Normal S1, Normal S2 Lungs: Clear, Wheezing Abdomen: Normal bowel sounds, Other (tender RUQ, 1 hepatic EMILIANA with dark bloody drainage) Labs LABS Laboratory Tests Test 09/14/16 04:50 White Blood Count 9.1 x10^3/uL (4.0-11.0) Red Blood Count 4.35 x10^6/uL (3.50-5.40) Hemoglobin 13.2 g/dL (12.0-15.5) Hematocrit 38.3 % (36.0-47.0) Mean Corpuscular Volume 88 fL (79-100) Mean Corpuscular Hemoglobin 30 pg (25-35) Mean Corpuscular Hemoglobin Concent 35 g/dL (31-37) Red Cell Distribution Width 13.1 % (11.5-14.5) Platelet Count 224 x10^3/uL (140-400) Neutrophils (%) (Auto) 46 % (31-73) Lymphocytes (%) (Auto) 38 % (24-48) Monocytes (%) (Auto) 10 % (0-9) Eosinophils (%) (Auto) 6 % (0-3) Basophils (%) (Auto) 1 % (0-3) Neutrophils # (Auto) 4.1 x10^3uL (1.8-7.7) Lymphocytes # (Auto) 3.4 x10^3/uL (1.0-4.8) Monocytes # (Auto) 0.9 x10^3/uL (0.0-1.1) Eosinophils # (Auto) 0.5 x10^3/uL (0.0-0.7) Basophils # (Auto) 0.1 x10^3/uL (0.0-0.2) Review of Systems Review of Systems no fever, chills, sob or chest pain Assessment and Plan Assessmemt and Plan Problems Medical Problems: (1) Abdominal pain Status: Acute (2) Liver cyst Status: Acute Problems: Comment Review of Relevant I have reviewed the following items adali (where applicable) has been applied. Labs Laboratory Tests Test 09/14/16 04:50 White Blood Count 9.1 x10^3/uL (4.0-11.0) Red Blood Count 4.35 x10^6/uL (3.50-5.40) Hemoglobin 13.2 g/dL (12.0-15.5) Hematocrit 38.3 % (36.0-47.0) Mean Corpuscular Volume 88 fL (79-100) Mean Corpuscular Hemoglobin 30 pg (25-35) Mean Corpuscular Hemoglobin Concent 35 g/dL (31-37) Red Cell Distribution Width 13.1 % (11.5-14.5) Platelet Count 224 x10^3/uL (140-400) Neutrophils (%) (Auto) 46 % (31-73) Lymphocytes (%) (Auto) 38 % (24-48) Monocytes (%) (Auto) 10 % (0-9) Eosinophils (%) (Auto) 6 % (0-3) Basophils (%) (Auto) 1 % (0-3) Neutrophils # (Auto) 4.1 x10^3uL (1.8-7.7) Lymphocytes # (Auto) 3.4 x10^3/uL (1.0-4.8) Monocytes # (Auto) 0.9 x10^3/uL (0.0-1.1) Eosinophils # (Auto) 0.5 x10^3/uL (0.0-0.7) Basophils # (Auto) 0.1 x10^3/uL (0.0-0.2) Laboratory Tests Test 09/14/16 04:50 White Blood Count 9.1 x10^3/uL (4.0-11.0) Red Blood Count 4.35 x10^6/uL (3.50-5.40) Hemoglobin 13.2 g/dL (12.0-15.5) Hematocrit 38.3 % (36.0-47.0) Mean Corpuscular Volume 88 fL (79-100) Mean Corpuscular Hemoglobin 30 pg (25-35) Mean Corpuscular Hemoglobin Concent 35 g/dL (31-37) Red Cell Distribution Width 13.1 % (11.5-14.5) Platelet Count 224 x10^3/uL (140-400) Neutrophils (%) (Auto) 46 % (31-73) Lymphocytes (%) (Auto) 38 % (24-48) Monocytes (%) (Auto) 10 % (0-9) Eosinophils (%) (Auto) 6 % (0-3) Basophils (%) (Auto) 1 % (0-3) Neutrophils # (Auto) 4.1 x10^3uL (1.8-7.7) Lymphocytes # (Auto) 3.4 x10^3/uL (1.0-4.8) Monocytes # (Auto) 0.9 x10^3/uL (0.0-1.1) Eosinophils # (Auto) 0.5 x10^3/uL (0.0-0.7) Basophils # (Auto) 0.1 x10^3/uL (0.0-0.2) Microbiology 09/11/16 Gram Stain - Final, Complete Medications Current Medications Ketorolac Tromethamine (Toradol) 10 mg 1X ONCE IV Last administered on t 15:13; Start 09/08/16 at 14:45; Stop 09/08/16 at 14:46; Status DC Piperacillin Sod/ Tazobactam Sod (Zosyn Per Pharmacy) 1 each PRN DAILY PRN MC SEE COMMENTS; Start 09/08/16 at 16:45; Stop 09/13/16 at 10:25; Status DC Piperacillin Sod/ Tazobactam Sod 3.375 gm/Sodium Chloride 50 ml @ 100 mls/hr 1X ONCE IV Last administered on 09/08/16 17:01; Start 09/08/16 at 16:45; Stop 09/08/16 at 17:14; Status DC Iohexol (Omnipaque 300 Mg/ml) 75 ml 1X ONCE IV Last administered on 09/08/16 17:00; Start 09/08/16 at 17:00; Stop 09/08/16 at 17:01; Status DC Info (Do NOT chart on this entry -- for MONITORING) 1 each PRN DAILY PRN MC SEE COMMENTS; Start 09/08/16 at 17:00; Stop 09/10/16 at 16:59; Status DC Ondansetron HCl (Zofran) 4 mg PRN Q8HRS PRN IV NAUSEA/VOMITING Last administered on 09/08/16 20:11; Start 09/08/16 at 17:15; Stop 09/09/16 at 17:14 ; Status DC Fentanyl Citrate (Fentanyl 2ml Vial) 50 mcg PRN Q2HR PRN IV PAIN Last administered on 09/08/16 19:56; Start 09/08/16 at 17:15; Stop 09/09/16 at 10:31 ; Status DC Acetaminophen (Tylenol) 650 mg PRN Q4HRS PRN PO FEVER; Start 09/08/16 at 17:15 ; Stop 09/09/16 at 17:14; Status DC Piperacillin Sod/ Tazobactam Sod 3.375 gm/Sodium Chloride 50 ml @ 100 mls/hr Q6HRS IV Last administered on 09/13/16 05:16; Start 09/09/16 at 00:00; Stop 09/13/16 at 10:25; Status DC Aspirin (Ecotrin) 81 mg DAILY PO Last administered on 09/14/16 08:32; Start at 09:00 Atenolol (Tenormin) 50 mg DAILY PO Last administered on 09/14/16 08:33; Start 09/08/16 at 22:00 Hydrochlorothiazide (Hydrodiuril) 25 mg DAILY PO Last administered on 09/14/16 08:32; Start 09/08/16 at 22:00 Levothyroxine Sodium (Synthroid) 50 mcg DAILY07 PO Last administered on 07:00; Start 09/09/16 at 07:00 Simvastatin (Zocor) 20 mg QHS PO Last administered on 09/13/16 20:32; Start at 22:00 Pantoprazole Sodium (Protonix) 40 mg DAILYAC PO Last administered on 09/14/16 08:32; Start 09/09/16 at 07:30 Fish Oil (Fish Oil) 1,000 mg DAILY PO Last administered on 09/14/16 08:32; Start 09/09/16 at 09:00 Acetaminophen/ Hydrocodone Bitart (Lortab 5/325) 1 tab PRN Q4HRS PRN PO MODERATE PAIN Last administered on 09/13/16 17:25; Start 09/08/16 at 21:45 Magnesium Hydroxide (Milk Of Magnesia) 2,400 mg PRN DAILY PRN PO CONSTIPATION Last administered on 09/13/16 00:21; Start 09/10/16 at 11:00 Docusate Sodium (Colace) 100 mg DAILY PO Last administered on 09/14/16 08:32; Start 09/10/16 at 11:00 Lidocaine/Sodium Bicarbonate (Buffered Lidocaine 1%) 20 ml STK-MED ONCE IJ ; Start 09/11/16 at 08:47; Stop 09/11/16 at 08:48; Status DC Midazolam HCl (Versed) 5 mg STK-MED ONCE .ROUTE ; Start 09/11/16 at 08:56; Stop 09/11/16 at 08:57; Status DC Fentanyl Citrate (Fentanyl 5ml Vial) 250 mcg STK-MED ONCE .ROUTE ; Start at 08:56; Stop 09/11/16 at 08:57; Status DC Lidocaine/Sodium Bicarbonate (Buffered Lidocaine 1%) 20 ml 1X ONCE IJ Last administered on 09/11/16 09:41; Start 09/11/16 at 09:45; Stop 09/11/16 at 09:46; Status DC Midazolam HCl (Versed) 3.5 mg 1X ONCE IV Last administered on 09/11/16 09:41; Start 09/11/16 at 09:45; Stop 09/11/16 at 09:46; Status DC Fentanyl Citrate (Fentanyl 5ml Vial) 150 mcg 1X ONCE IV Last administered on 09:42; Start 09/11/16 at 09:45; Stop 09/11/16 at 09:46; Status DC Acetaminophen (Tylenol) 650 mg PRN Q6HRS PRN PO FEVER Last administered on 08:32; Start 09/11/16 at 14:00 Ondansetron HCl (Zofran) 4 mg PRN Q6HRS PRN IV NAUSEA/VOMITING; Start 09/11/16 at 14:00 Potassium Chloride (Klor-Con) 40 meq 1X ONCE PO Last administered on 09/12/16 11:08; Start 09/12/16 at 11:00; Stop 09/12/16 at 11:01; Status DC Hydralazine HCl (Apresoline) 10 mg PRN Q4HRS PRN IVP ELEVATED BP, SEE COMMENTS Last administered on 09/13/16 11:59; Start 09/13/16 at 11:45 Active Scripts Active Reported Fish Oil Concentrate Softgel ([place]-3 Fatty Acids/Fish Oil) 1 Each Capsule 1 Each PO Levothyroxine Sodium 50 Mcg Tablet 1 Tab PO DAILY Aspir 81 (Aspirin) 81 Mg Tablet.dr 1 Tab PO DAILY Omeprazole 20 Mg Capsule. 1 Cap PO DAILY Hydrochlorothiazide Tablet (Hydrochlorothiazide) 25 Mg Tablet 1 Tab PO DAILY Atenolol 50 Mg Tablet 1 Tab PO DAILY Simvastatin 20 Mg Tablet 1 Tab PO QHS Vitals/I & O Vital Sign - Last 24 Hours 09/13/16 09/13/16 09/13/16 09/13/16 15:00 17:25 18:30 19:34 Temp 97.7 98.6 97.7 98.6 Pulse 74 76 Resp 19 20 B/P (MAP) 153/69 (97) 170/79 (109) Pulse Ox 94 92 O2 Delivery Room Air Room Air Room Air Room Air 09/13/16 09/13/16 09/14/16 09/14/16 20:00 23:08 03:10 07:00 Temp 98.2 97.8 98.2 97.8 Pulse 65 66 64 Resp 20 20 16 B/P (MAP) 145/67 (93) 154/77 (102) 161/78 (105) Pulse Ox 92 95 O2 Delivery Room Air BiPAP/CPAP Room Air 09/14/16 09/14/16 08:33 11:00 Temp 98.1 98.1 Pulse 94 68 Resp 18 B/P (MAP) 161/78 148/74 (98) Pulse Ox 92 O2 Delivery Room Air Intake and Output 09/13/16 09/13/16 09/14/16 15:00 23:00 07:00 Intake Total 500 ml 1050 ml 880 ml Output Total 60 ml 15 ml Balance 500 ml 990 ml 865 ml CAROLE MURILLO MD September 14, 2016 12:00
[2016-09-14 15:21] VITALS: BP 145/72
[2016-09-14 19:00] VITALS: BP 142/67
[2016-09-14] MEDS: SIMVASTATIN 20 MG TABLET PO SCH (20:34)
[2016-09-14] MEDS: HYDROcodone/APAP 5/325MG 1 TAB TABLET PO PRN (20:35)
[2016-09-14 22:58] VITALS: BP 123/54
[2016-09-15] MEDS: LEVOTHYROXINE 50 MCG TABLET PO SCH (05:39)
[2016-09-15 07:00] VITALS: BP 155/72
[2016-09-15] MEDS: hydroCHLOROthiazide 25 MG TABLET PO SCH (08:23)
[2016-09-15] MEDS: OMEGA-3 FATTY ACIDS/FISH OIL 1,000 MG CAPSULE. PO SCH (08:23)
[2016-09-15] MEDS: PANTOPRAZOLE 40 MG TABLET.DR. PO SCH (08:23)
[2016-09-15] MEDS: ASPIRIN ENTERIC COATED 81 MG TABLET.DR. PO SCH (08:23)
[2016-09-15] MEDS: ATENOLOL 50 MG TABLET. PO SCH (08:24)
[2016-09-15] MEDS: DOCUSATE SODIUM 100 MG CAPSULE. PO SCH (08:26)
[2016-09-15] MEDS: ACETAMINOPHEN 325 MG TABLET. PO PRN (08:31)
--- NOTE | 2016-09-15 09:55 | PDOC ---
Subjective: Subjective: Wants drain removed, wants to DC, feeling well. Objective: Objective: Per RN - ~10cc overnight. Vital Signs: Vital Signs Date Time Temp Pulse Resp B/P (MAP) Pulse Ox O2 Delivery O2 Flow Rate FiO2 09/15/16 08:24 71 155/72 09/15/16 07:00 97.2 95 Room Air 97.2 09/14/16 22:58 18 PE: GEN: NAD, walking around room ABD: drain w/ scant dark blood NEURO/PSYCH: A & O 3 A/P: Hepatic cyst -s/p drain now w/ minimal output, cx neg -- Drain removal per IR, follow-up w/ GI in [place]. ARELY BROWN September 15, 2016 09:55
--- NOTE | 2016-09-15 10:10 | PDOC ---
Infectious Disease Note Subjective Subjective feeling better, walking, pain better ROS ROS GEN: Denies fevers, chills, sweats HEENT: Denies blurred vision, sore throat CV: Denies chest pain RESP: Denies shortness of air, cough GI: Denies n/v/d NEURO: Denies confusion, dizziness MSK: Denies weakness, joint pain/swelling Vital Sign Vital Signs Vital Signs Date Time Temp Pulse Resp B/P (MAP) Pulse Ox O2 Delivery O2 Flow Rate FiO2 09/15/16 08:24 71 155/72 09/15/16 07:00 97.2 95 Room Air 97.2 09/14/16 22:58 18 Physical Exam PHYSICAL EXAM GENERAL: NAD, Alert HEENT: PERRL, OC/OP NECK: Supple, no JVD, no LN LUNGS: Clear HEART: S1S2, no gallop, no murmur ABD: Soft, NT, no organomegaly, no rebound EXT: No edema, no cyanosis [employer]GER [employer]: Alert, oriented x 3, no focal neurologic deficit SKIN: No rash IV: ok Labs Micro culture neg Objective Assessment Hepatic complex cyst likely, no infection Leukocytosis, improved Acute onset RUQ abdominal pain GERD HTN Plan Plan of Care off antibiotics culture neg so far d/w dr Mcdonough d/c ok from ID stand point CAL RUST MD September 15, 2016 10:10
--- NOTE | 2016-09-15 10:17 | PDOC3 ---
Discharge Summary Visit Information Date of Admission: Sep 08, 2016 Date of Discharge: September 15, 2016 Admitting Diagnosis Comment: 1. Hepatic complex cyst s/p IR drainage 2. Leukocytosis: better. 3. Acute onset right upper quadrant abdominal pain: due to above, 4. Gastroesophageal reflux disease. 5. Hypertension: stable 6.hypokalemia replaced Final Diagnosis Problems Medical Problems: (1) Abdominal pain Status: Acute (2) Liver cyst Status: Acute Brief Hospital Course Allergies Allergies Coded Allergies Type Severity Reaction Last Updated Verified Axhmwyj-Dvf-Yho Reductase Inhibitor Allergy Intermediate ALLERGY TO UNKNOWN CHOLESTEROL MED 09/14/16 Yes fenofibrate Allergy Intermediate ALLERGY TO UNKNOWN CHOLESTEROL MEDICATION 09/14 Yes gemfibrozil Allergy Intermediate ALLERGY TO UNKNOWN CHOLESTEROL MEDICATION 09/14 Yes niacin Allergy Intermediate ALLERGY TO UNKNOWN CHOLESTEROL MEDICATION 09/14/16 Yes Vital Signs Vital Signs Date Time Temp Pulse Resp B/P (MAP) Pulse Ox O2 Delivery O2 Flow Rate FiO2 09/15/16 08:24 71 155/72 09/15/16 07:00 97.2 95 Room Air 97.2 09/14/16 22:58 18 Lab Results Laboratory Tests Test 09/14/16 04:50 White Blood Count 9.1 x10^3/uL (4.0-11.0) Red Blood Count 4.35 x10^6/uL (3.50-5.40) Hemoglobin 13.2 g/dL (12.0-15.5) Hematocrit 38.3 % (36.0-47.0) Mean Corpuscular Volume 88 fL (79-100) Mean Corpuscular Hemoglobin 30 pg (25-35) Mean Corpuscular Hemoglobin Concent 35 g/dL (31-37) Red Cell Distribution Width 13.1 % (11.5-14.5) Platelet Count 224 x10^3/uL (140-400) Neutrophils (%) (Auto) 46 % (31-73) Lymphocytes (%) (Auto) 38 % (24-48) Monocytes (%) (Auto) 10 % (0-9) Eosinophils (%) (Auto) 6 % (0-3) Basophils (%) (Auto) 1 % (0-3) Neutrophils # (Auto) 4.1 x10^3uL (1.8-7.7) Lymphocytes # (Auto) 3.4 x10^3/uL (1.0-4.8) Monocytes # (Auto) 0.9 x10^3/uL (0.0-1.1) Eosinophils # (Auto) 0.5 x10^3/uL (0.0-0.7) Basophils # (Auto) 0.1 x10^3/uL (0.0-0.2) Brief Hospital Course Ms. Daniels is a 76 old F admitted for R sided abd pain, imaging showed complex cyst, intially co managed with ID but no infection, HAd IR drainage, Lots of draiange, now just 10cc for ready for removal, No new meds started, Just PO OTC NSAID for pain Pt seen and examined Dw pt and RN DispO; home Procl; IR felix hepatic complex cyst Discharge Information Condition at Discharge: Improved, Stable Disposition/Orders: D/C to Home Scheduled Aspirin (Aspir 81), 1 TAB PO DAILY, (Reported) Atenolol (Atenolol), 1 TAB PO DAILY, (Reported) Hydrochlorothiazide (Hydrochlorothiazide Tablet ), 1 TAB PO DAILY, (Reported) Levothyroxine Sodium (Levothyroxine Sodium), 1 TAB PO DAILY, (Reported) Omeprazole (Omeprazole), 1 CAP PO DAILY, (Reported) Simvastatin (Simvastatin), 1 TAB PO QHS, (Reported) Miscellaneous Medications [place]-3 Fatty Acids/Fish Oil (Fish Oil Concentrate Softgel), 1 EACH PO, ( Reported) OLIVIA RM MD September 15, 2016 10:17
[2016-09-15 11:00] VITALS: BP 120/70
[2016-09-15] MEDS: HYDROcodone/APAP 5/325MG 1 TAB TABLET PO PRN (12:56)
== END 2016-09-15 14:48 | disposition home or self-care (01) | DRG 443 ==
LOC: ER 13:25 → 5 NORTH 17:00 → 5 SOUTH 09-14 14:59
PROVIDERS: ADMIT Internal Medicine; ATTEND Internal Medicine
PROC: 0F9130Z Drainage of Right Lobe Liver with Drainage Device, Percutaneous Approach (ICD-10-PCS; principal; 2016-09-09)
DX: K76.89 Other specified diseases of liver (principal); I16.0 Hypertensive urgency; K21.9 Gastro-esophageal reflux disease without esophagitis; E03.9 Hypothyroidism, unspecified; E78.00 Pure hypercholesterolemia, unspecified; E78.5 Hyperlipidemia, unspecified; E87.6 Hypokalemia; I10 Essential (primary) hypertension; K59.00 Constipation, unspecified; Z96.612 Presence of left artificial shoulder joint; K76.0 Fatty (change of) liver, not elsewhere classified; Z80.1 Family history of malignant neoplasm of trachea, bronchus and lung; Z87.440 Personal history of urinary (tract) infections; Z90.710 Acquired absence of both cervix and uterus; Z88.8 Allergy status to other drugs, medicaments and biological substances
CPT/HCPCS: 36415; 49406; 71020; 71100; 72193; 74170; 76705; 80048; 80076; 83690; 84484; 85027; 87071; 87075; 87205; 88173; 88305; 89050; 93005; 96365; 96366; 96375; A4215; C1729; C1892; C1894; J0360; J1885; J2250; J2405; J2543; J3010; Q9967; 99285-25

== ENCOUNTER 2019-03-12 14:03 | Emergency (ER) | payer OTHER ==
[~2019-03-12] VITALS: Ht 157.5 cm; Wt 72.1 kg
[~2019-03-12 14:03] MED LIST: ASPI-482 PO; ATEN50TA PO; HYDR-2145 PO; LEVO50TA5 PO; OMEG1CAP34 PO; OMEG300C PO; OMEP20CA10 PO; SIMV20TA18 PO; levothyroxine
[2019-03-12 14:33] VITALS: BP 152/67
[2019-03-12 14:36] LABS: BILIRUBIN,URINE NEGATIVE (NEG); CLARITY,URINE CLOUDY; COLOR,URINE YELLOW; NITRITE,URINE NEGATIVE (NEG); PROTEIN,URINE NEGATIVE (NEG-TRACE)
[2019-03-12 14:59] LABS: SQUAMOUS EPITHELIAL CELL,UR OCC /LPF
[2019-03-12 15:00] LABS: BACTERIA,URINE FEW /HPF (0-FEW); WBC,URINE >40 /HPF (0-4)
[2019-03-12] MEDS ORDERED: CEPH500T PO (15:19)
--- NOTE | 2019-03-12 15:20 | PHYS DOC ---
Past Medical History Past Medical History: Hypertension, Hyperthyroid Past Surgical History: Hysterectomy Additional Past Surgical Histo: SHOULDER REPLACEMENT Alcohol Use: Occasionally Drug Use: None Adult General Chief Complaint Chief Complaint: PAIN ON URINATION [facility] HPI Patient is a 79 year old female who presents with dysuria for a couple days. Patient is not specific on how many days. She states she feels she has a UTI. She states this is common for her when she is traveling because she does not drink much water. Patient denies any fever. Review of Systems Review of Systems Constitutional: Denies fever or chills [] Eyes: Denies change in visual acuity, redness, or eye pain [] HENT: Denies nasal congestion or sore throat [] Respiratory: Denies cough or shortness of breath [] Cardiovascular: No additional information not addressed in HPI [] GI: Denies abdominal pain, nausea, vomiting, bloody stools or diarrhea [] : Reports dysuria, denies hematuria [] Musculoskeletal: Denies back pain or joint pain [] Integument: Denies rash or skin lesions [] Neurologic: Denies headache, focal weakness or sensory changes [] All other systems were reviewed and found to be within normal limits, except as documented in this note. Allergies Allergies Allergies Coded Allergies Type Severity Reaction Last Updated Verified Uul[place]aa-Pfc-Enj Reductase Inhibitor Allergy Intermediate ALLERGY TO UNKNOWN CHOLESTEROL MED 09/14/16 Yes fenofibrate Allergy Intermediate ALLERGY TO UNKNOWN CHOLESTEROL MEDICATION 09/14/16 Yes gemfibrozil Allergy Intermediate ALLERGY TO UNKNOWN CHOLESTEROL MEDICATION 09/14/16 Yes niacin Allergy Intermediate ALLERGY TO UNKNOWN CHOLESTEROL MEDICATION 09/14/16 Yes Physical Exam Physical Exam Constitutional: Well developed, well nourished, no acute distress, non-toxic appearance. [] HENT: Normocephalic, atraumatic, bilateral external ears normal, oropharynx moist, no oral exudates, nose normal. [] Eyes: PERRLA, EOMI, conjunctiva normal, no discharge. [] Neck: Normal range of motion, no tenderness, supple, no stridor. [] Cardiovascular:Heart rate regular rhythm, no murmur [] Lungs & Thorax: Bilateral breath sounds clear to auscultation [] Abdomen: Bowel sounds normal, soft, no tenderness, no masses, no pulsatile masses. [] Skin: Warm, dry, no erythema, no rash. [] Back: No tenderness, no CVA tenderness. [] Extremities: No tenderness, no cyanosis, no clubbing, ROM intact, no edema. [] Neurologic: Alert and oriented X 3, normal motor function, normal sensory function, no focal deficits noted. [] Psychologic: Affect normal, judgement normal, mood normal. [] Current Patient Data Vital Signs Vital Signs Date Time Temp Pulse Resp B/P (MAP) Pulse Ox O2 Delivery O2 Flow Rate FiO2 03/12/19 14:33 97.8 61 18 152/67 (95) 97 Room Air 97.8 Lab Values Laboratory Tests Test 03/12/19 14:20 Urine Collection Type Unknown Urine Color Yellow Urine Clarity Cloudy Urine pH 6.0 Urine Specific [place] 1.010 Urine Protein Negative mg/dL (NEG-TRACE) Urine Glucose (UA) Negative mg/dL (NEG) Urine Ketones (Stick) Negative mg/dL (NEG) Urine Blood Moderate (NEG) Urine Nitrite Negative (NEG) Urine Bilirubin Negative (NEG) Urine Urobilinogen Dipstick 1.0 mg/dL (0.2 mg/dL) Urine Leukocyte Esterase Large (NEG) Urine RBC 3-5 /HPF (0-2) Urine WBC >40 /HPF (0-4) Urine Squamous Epithelial Cells Occ /LPF Urine Bacteria Few /HPF (0-FEW) EKG EKG [] Radiology/Procedures Radiology/Procedures [] Course & Med Decision Making Course & Med Decision Making Pertinent Labs and Imaging studies reviewed. (See chart for details) Positive for UTI, discharged on cephalexin. Instructed to push fluids. Follow-up with primary care doctor as soon as she gets back home. Dragon Disclaimer Dragon Disclaimer This electronic medical record was generated, in whole or in part, using a voice recognition dictation system. Departure Departure Impression: Primary Impression: UTI (urinary tract infection) Disposition: HOME, SELF-CARE Condition: STABLE Referrals: UNKNOWN PCP NAME (PCP) follow up with your doctor next week Patient Instructions: Urinary Tract Infection Additional Instructions: You have urinary tract infection, complete your antibiotics. Push fluids. Follow-up with your doctor next week Scripts Cephalexin (CEPHALEXIN) 500 Mg Tablet 1 TAB PO BID, #14 TAB Prov: [employer] 03/12/19 Problem Qualifiers Primary Impression: UTI (urinary tract infection) Urinary tract infection type: site unspecified Hematuria presence: without hematuria Qualified Codes: N39.0 - Urinary tract infection, site not specified JOSEMANUEL LAGUNAS APRN Mar 12, 2019 15:19
== END 2019-03-12 15:20 | disposition home or self-care (01) ==
LOC: ER 14:03
DX: N39.0 Urinary tract infection, site not specified (principal); I10 Essential (primary) hypertension; E03.9 Hypothyroidism, unspecified; Z90.710 Acquired absence of both cervix and uterus; Z91.041 Radiographic dye allergy status; Z88.8 Allergy status to other drugs, medicaments and biological substances
CPT/HCPCS: 81001; 87086; 87186; 99284

== ENCOUNTER 2019-03-25 11:36 | Emergency (ER) | payer OTHER ==
[~2019-03-25] VITALS: Ht 157.5 cm; Wt 72.1 kg
[~2019-03-25 11:36] MED LIST changes: +CEPH500T PO
[2019-03-25 11:41] VITALS: BP 179/57
[2019-03-25 12:50] LABS: BILIRUBIN,URINE NEGATIVE (NEG); CLARITY,URINE CLOUDY; COLOR,URINE YELLOW; NITRITE,URINE NEGATIVE (NEG); PH,URINE 6.5; PROTEIN,URINE NEGATIVE (NEG-TRACE); UROBILINOGEN,URINE 0.2 mg/dL (0.2 mg/dL)
[2019-03-25 12:58] LABS: SQUAMOUS EPITHELIAL CELL,UR MOD /LPF
[2019-03-25 12:59] LABS: BACTERIA,URINE MANY /HPF (0-FEW); WBC,URINE TNTC /HPF (0-4)
[2019-03-25] MEDS ORDERED: NITR100C62 PO (13:11)
--- NOTE | 2019-03-25 13:11 | PHYS DOC ---
Past Medical History Past Medical History: Hypertension, Hyperthyroid Past Surgical History: Hysterectomy Additional Past Surgical Histo: SHOULDER REPLACEMENT Alcohol Use: Occasionally Drug Use: None Adult General Chief Complaint Chief Complaint: PAIN ON URINATION HPI HPI Patient is a 79 year old female who presented to ER today for evaluation of frequent urination with burning sensation for 4 days. Patient feels like she has UTI again. She denies any fever, no abdominal pain, no nausea vomiting. All other ROS is negative unless otherwise noted in HPI Review of Systems Review of Systems See above Allergies Allergies Allergies Coded Allergies Type Severity Reaction Last Updated Verified Nmoacdc-Sii-Mwo Reductase Inhibitor Allergy Intermediate ALLERGY TO UNKNOWN CHOLESTEROL MED 09/14/16 Yes fenofibrate Allergy Intermediate ALLERGY TO UNKNOWN CHOLESTEROL MEDICATION 09/14/16 Yes gemfibrozil Allergy Intermediate ALLERGY TO UNKNOWN CHOLESTEROL MEDICATION 09/14/16 Yes niacin Allergy Intermediate ALLERGY TO UNKNOWN CHOLESTEROL MEDICATION 09/14/16 Yes Physical Exam Physical Exam See above Constitutional: Well developed, well nourished, no acute distress, non-toxic appearance. [] HENT: Normocephalic, atraumatic, bilateral external ears normal, oropharynx moist, no oral exudates, nose normal. [] Eyes: PERRLA, EOMI, conjunctiva normal, no discharge. [] Neck: Normal range of motion, no tenderness, supple, no stridor. [] Cardiovascular:Heart rate regular rhythm, no murmur [] Lungs & Thorax: Bilateral breath sounds clear to auscultation [] Abdomen: Bowel sounds normal, soft, no tenderness, no masses, no pulsatile masses. [] Skin: Warm, dry, no erythema, no rash. [] Back: No tenderness, no CVA tenderness. [] Extremities: No tenderness, no cyanosis, no clubbing, ROM intact, no edema. [] Neurologic: Alert and oriented X 3, normal motor function, normal sensory function, no focal deficits noted. [] Psychologic: Affect normal, judgement normal, mood normal. [] Current Patient Data Vital Signs Vital Signs Date Time Temp Pulse Resp B/P (MAP) Pulse Ox O2 Delivery O2 Flow Rate FiO2 03/25/19 11:41 97.7 73 18 179/57 (97) 100 Room Air 97.7 Lab Values Laboratory Tests Test 03/25/19 12:29 Urine Collection Type Unknown Urine Color Yellow Urine Clarity Cloudy Urine pH 6.5 Urine Specific [place] 1.010 Urine Protein Negative mg/dL (NEG-TRACE) Urine Glucose (UA) Negative mg/dL (NEG) Urine Ketones (Stick) Negative mg/dL (NEG) Urine Blood Small (NEG) Urine Nitrite Negative (NEG) Urine Bilirubin Negative (NEG) Urine Urobilinogen Dipstick 0.2 mg/dL (0.2 mg/dL) Urine Leukocyte Esterase Large (NEG) Urine RBC 6-10 /HPF (0-2) Urine WBC Tntc /HPF (0-4) Urine Squamous Epithelial Cells Mod /LPF Urine Bacteria Many /HPF (0-FEW) EKG EKG [] Radiology/Procedures Radiology/Procedures [] Course & Med Decision Making Course & Med Decision Making Pertinent Labs and Imaging studies reviewed. (See chart for details) [] Dragon Disclaimer Dragon Disclaimer This electronic medical record was generated, in whole or in part, using a voice recognition dictation system. Departure Departure Impression: Primary Impression: UTI (urinary tract infection) Disposition: HOME, SELF-CARE Condition: STABLE Referrals: UNKNOWN PCP NAME (PCP) FOLLOW UP WITH YOUR DOCTOR IN 2 DAYS Patient Instructions: Urinary Tract Infection Scripts Nitrofurantoin Monohyd/M-Cryst (MACROBID 100 MG CAPSULE) 100 Mg Capsule 1 CAP PO BID for 10 Days, #20 CAP 0 Refills Prov: COURTNEY JUSTICE DO 03/25/19 COURTNEY JUSTICE DO Mar 25, 2019 13:11
== END 2019-03-25 13:20 | disposition home or self-care (01) ==
LOC: ER 11:36
DX: N39.0 Urinary tract infection, site not specified (principal); R35.0 Frequency of micturition; I10 Essential (primary) hypertension; E05.90 Thyrotoxicosis, unspecified without thyrotoxic crisis or storm; Z90.710 Acquired absence of both cervix and uterus; Z88.8 Allergy status to other drugs, medicaments and biological substances; Z88.1 Allergy status to other antibiotic agents
CPT/HCPCS: 81001; 87086; 87186; 99284